=== PATIENT | male | born 1970 | race Caucasian/White ===

== ENCOUNTER 2018-01-28 18:01 | Emergency (ER) | payer OTHER | END 2018-01-28 19:39 | disposition left against medical advice (07) | LOC: ERS 18:01 | DX: Z53.21 Procedure and treatment not carried out due to patient leaving prior to being seen by health care provider (principal) ==

== ENCOUNTER 2019-08-10 21:11 | Emergency (ER) | payer OTHER ==
[2019-08-10] MEDS ORDERED: Morphine 4 MG/ML VIAL ONE (21:27)
[2019-08-10] MEDS ORDERED: Ketorolac Tromethamine 30 MG/ML VIAL ONE (21:29)
[2019-08-10] MEDS ORDERED: Ondansetron PF 4 MG/2 ML Vial ONE (21:29)
[2019-08-10 21:52] LABS: #Basophils 0.1 thou/uL (0.0-0.2); #Eosinphils 0.3 thou/uL (0.0-0.7); #Lymphocytes 3.3 thou/uL (1.20-3.40); #Monocytes 0.9 thou/uL (0.11-0.59); #Neutrophils 7.2 thou/uL (1.40-6.50); %Basophils 1.1 % (0.0-1.0); %Eosinophils 2.9 % (0.0-10.0); %Lymphocytes 27.7 % (21.0-51.0); %Monocytes 7.9 % (0.0-10.0); %Neutrophils 60.4 % (42.0-75.0); Hemoglobin 15.5 g/dL (14.0-18.0); Mean Corpuscular HGB CONC 33.5 g/dL (32.0-36.0); Mean Corpuscular Hemoglobin 30.1 pg (27.0-31.0); Mean Corpuscular Volume 89.9 fL (78.0-98.0); Mean Platelet Volume 7.7 fL (7.4-10.4); Platelet Count 250 thou/uL (130-400); RBC Distribution Width 12.2 % (11.5-14.5); Red Blood Cell (RBC) Count 5.16 mill/uL (4.70-6.10); White Blood Cell (WBC) Count 11.9 thou/uL (4.8-10.8)
--- NOTE | 2019-08-10 21:52 | CT ---
CT abdomen and pelvis noncontrast HISTORY: Right flank pain. COMPARISON: 08/22/2007. FINDINGS: There is minimal stranding around the right ureter. A 0.2 cm calculus is present within the distal right ureter. Minimal distention of the renal pelvis. Left renal collecting system, ureter, and urinary bladder are decompressed. There is a 0.3 cm calculu s within a nondilated calyx at the inferior pole of the left kidney. Lack of contrast limits evaluation for other abnormalities. The liver is diffusely hypodense. Calcifi cation within the arterial structures. Prominent degenerative changes lumbar spine. IMPRESSION: Very low-grade obstruction at a 2 mm distal right ureteral calculus. Nonobstructing 3 mm left renal calculus. Hepatosteatosis. Atherosclerosis.
[2019-08-10 22:08] LABS: ALT (SGPT) 66 U/L (8-55); AST (SGOT) 42 U/L (5-34); Albumin 4.1 g/dL (3.5-5.0); Alkaline Phosphatase 115 U/L (40-110); Anion Gap 11 mmol/L (10-20); BUN (Urea Nitrogen) 14 mg/dL (8.9-20.6); Bilirubin, Total 0.5 mg/dL (0.2-1.2); Calc. Creatinine Clearance 0 mL/min (70-130); Calcium 9.7 mg/dL (7.8-10.44); Carbon Dioxide 28 mmol/L (22-29); Chloride 104 mmol/L (98-107); Estimated GFR-MDRD 59; Globulin 3.1 g/dL (2.4-3.5); Glucose 104 mg/dL (70-105); Potassium 3.9 mmol/L (3.5-5.1); Protein, Total 7.2 g/dL (6.0-8.3); Sodium 139 mmol/L (136-145)
[2019-08-10 22:38] LABS: Bacteria/HPF None Seen HPF (None Seen); Bilirubin Negative (Negative); Blood, Urine 1+ (Negative); Clarity Clear (Clear); Glucose, Urine (Dipstick) Normal (Negative); Leukocyte Negative Leu/uL (Negative); Nitrite Negative (Negative); Protein, Urine (Dipstick) Negative (Neg-Trace); RBC/HPF 21-50 HPF (0-3); Squamous Epithelial None Seen HPF (0-3); Urobilinogen Normal mg/dL (Less than 2); WBC/HPF 0-3 HPF (0-3)
== END 2019-08-10 23:00 | disposition home or self-care (01) ==
LOC: ERS 21:11
DX: N20.2 Calculus of kidney with calculus of ureter (principal); I51.9 Heart disease, unspecified; F17.290 Nicotine dependence, other tobacco product, uncomplicated
CPT/HCPCS: 74176; 80053; 81003; 81015; 85025; 87086; J1885; J2270; J2405

== ENCOUNTER 2020-06-21 11:30 | Inpatient (IN) | payer OTHER ==
[2020-06-21] MEDS ORDERED: Aspirin Chewable 81 MG TAB ONE (11:55)
[2020-06-21] MEDS ORDERED: Nitroglycerin 2% Ointment 1 INCH/1 GM Packet ONE (11:55)
[2020-06-21 12:09] LABS: #Basophils 0.1 thou/uL (0.0-0.2); #Eosinphils 0.2 thou/uL (0.0-0.7); #Lymphocytes 2.5 thou/uL (1.20-3.40); #Monocytes 0.7 thou/uL (0.11-0.59); #Neutrophils 6.4 thou/uL (1.40-6.50); %Eosinophils 1.8 % (0.0-10.0); %Lymphocytes 25.1 % (21.0-51.0); %Monocytes 7.1 % (0.0-10.0); Hemoglobin 16.1 g/dL (14.0-18.0); Mean Corpuscular HGB CONC 32.2 g/dL (32.0-36.0); Mean Corpuscular Volume 93.1 fL (78.0-98.0); Platelet Count 254 thou/uL (130-400); RBC Distribution Width 11.9 % (11.5-14.5); Red Blood Cell (RBC) Count 5.36 mill/uL (4.70-6.10); White Blood Cell (WBC) Count 9.9 thou/uL (4.8-10.8)
--- NOTE | 2020-06-21 12:24 | RAD ---
RADIOGRAPH CHEST 1 VIEW: DATE: 06/21/2020 HISTORY: 49-year-old male with dyspnea FINDINGS: There are no airspace densities, pulmonary edema, pneumothorax, or cardiomegaly. The lateral costophr enic angles are sharp. IMPRESSION: No acute cardiopulmonary findings.
[2020-06-21 12:31] LABS: ALT (SGPT) 60 U/L (8-55); AST (SGOT) 34 U/L (5-34); Albumin 4.3 g/dL (3.5-5.0); Alkaline Phosphatase 110 U/L (40-110); Anion Gap 14 mmol/L (10-20); BUN (Urea Nitrogen) 15 mg/dL (8.9-20.6); Bilirubin, Total 0.5 mg/dL (0.2-1.2); Calc. Creatinine Clearance 0 mL/min (70-130); Calcium 9.1 mg/dL (7.8-10.44); Carbon Dioxide 23 mmol/L (22-29); Chloride 104 mmol/L (98-107); Estimated GFR-MDRD 62; Globulin 2.9 g/dL (2.4-3.5); Glucose 93 mg/dL (70-105); Lipase 27 U/L (8-78); Potassium 4.3 mmol/L (3.5-5.1); Protein, Total 7.2 g/dL (6.0-8.3); Sodium 137 mmol/L (136-145)
[2020-06-21] MEDS ORDERED: Acetaminophen 325 MG TAB PO PRN (13:16)
[2020-06-21] MEDS ORDERED: Enoxaparin Sodium 40 MG/0.4 ML SYRINGE ONE (14:47)
[2020-06-21] MEDS ORDERED: Enoxaparin Sodium 100 MG/ML SYRINGE ONE (14:47)
[2020-06-21 15:25] LABS: Troponin I Less than 0.010 ng/mL (< 0.028)
[2020-06-21 17:23] VITALS: BMI 40.8
--- NOTE | 2020-06-21 19:17 | HP ---
CHIEF COMPLAINT: Chest pain. HISTORY OF PRESENT ILLNESS: The patient is a 49-year-old male with past medical history of hypertension, hyperlipidemia and coronary artery disease status post stenting in 2012, who presented to the hospital with complaints of worsening shortness of breath and central chest pain with exertion. Symptoms were initially requiring a lot of effort to reproduce, but currently are present with minimal exertion. He denies palpitation, dizziness, syncope, nausea, or vomiting. The patient has not been compliant with his medications at home. REVIEW OF SYSTEMS: Negative except as noted in HPI. PAST MEDICAL HISTORY: As noted above. PAST SURGICAL HISTORY: Coronary angioplasty in 2013. SOCIAL HISTORY: The patient drinks socially. He uses marijuana and is a current smoker. ALLERGIES: THE PATIENT IS ALLERGIC TO IV CONTRAST MEDIA AND IODINE. PHYSICAL EXAMINATION: GENERAL: The patient is alert and oriented x3. HEENT: Head is normocephalic and atraumatic. Extraocular muscles are intact. NECK: Supple. CHEST: Auscultation is clear bilaterally. CARDIOVASCULAR: Examination revealed normal S1, S2. Regular rate and rhythm. No murmurs, rubs, or gallops. ABDOMEN: Distended, soft, nontender. NEUROLOGIC: Unremarkable. PERTINENT DATA: EKG revealed some lateral Q-waves, but no ST elevations or depressions. Initial troponin was unremarkable at 0.012. BNP was less than 10. Chest x-ray did not show any cardiopulmonary findings. ASSESSMENT: 1. Progressive angina pectoralis. 2. Coronary artery disease. 3. Hypertension. 4. Hyperlipidemia. PLAN: The patient will be admitted to telemetry. Start aspirin, atorvastatin, isosorbide dinitrate, metoprolol, and lisinopril. Trend troponins q.3 hours. Cardiology Service consulted. Keep the patient n.p.o. after midnight. Job ID: [id number]
[2020-06-21] MEDS ORDERED: Communication Order-Pharmacy FS SCH (20:15)
[2020-06-21] MEDS ORDERED: predniSONE 20 MG TAB PO SCH (20:15)
--- NOTE | 2020-06-21 20:32 | CON ---
DATE OF CONSULTATION: 06/21/2020 REASON FOR CONSULTATION: Chest pain. HISTORY OF PRESENT ILLNESS: Mr. Miller is a pleasant 49-year-old white gentleman who comes to the hospital for chest pain. He has noted that in the last week or so, he has gotten worsening dyspnea on exertion and shortness of breath as well as chest discomfort. He decided to come in as this was just getting worse. He has significant history of coronary artery disease, had 2 stents placed per his report by Dr. Bird at [facility] back in 2012. He states he was a heavy smoker at that time. However, he quit smoking since the stent, he is vaping since. He currently is pain free at rest. He denies any other issues. He states the last catheterization was about 4 years ago at [facility]. At that point, he was told that everything looked fine. PAST MEDICAL HISTORY: 1. Coronary artery disease as above. 2. Hypertension. 3. Hyperlipidemia. PAST SURGICAL HISTORY: Stenting in 2013 as above and repeat catheterization more recently. SOCIAL HISTORY: Social alcohol use. Marijuana use. Has not smoked cigarettes since his stents were placed according to his report. OUTPATIENT MEDICATIONS: None. ALLERGIES: IODINE. REVIEW OF SYSTEMS: A 12-point review of systems was done and was all negative unless stated in the History of Present Illness. PHYSICAL EXAMINATION: VITAL SIGNS: Temperature 97.8, pulse 73, respiratory rate 18, sat 95% on room air, and blood pressure 130/73. GENERAL: Awake, alert, and oriented x3. No distress. HEENT: Normocephalic, atraumatic. NECK: Supple. LUNGS: Clear. CARDIOVASCULAR: S1 and S2. No S3 or S4. No murmurs. ABDOMEN: Soft. Positive bowel sounds. EXTREMITIES: No edema. SKIN: Warm, dry. LABORATORY DATA: Laboratory work was reviewed. CBC unremarkable. Chemistries unremarkable as well. Troponin was negative x2. BNP is undetectable. EKG was reviewed, completely normal. Chest x-ray was unremarkable. ASSESSMENT: 1. Chest pain. 2. History of coronary artery disease, but no acute coronary syndrome. PLAN: 1. We spoke about risk stratification with a stress test versus heart catheterization at this point he is having ongoing shortness of breath with any exertion, I would probably offer heart catheterization instead. He would have to have a negative COVID test prior to doing this as this may be COVID-19 infection; however, we will offer to do this tomorrow around noon. 2. We have spoken at length with risks and benefits of the procedure, risks included but are not limited to stroke, AK, , bleeding, need for blood transfusion, limb loss, organ loss. The patient understands and verbalized understanding of this and agrees to proceed. Radial access, drug-eluting stents if needed after discussion of long-term use of dual antiplatelet therapy. Thank you for letting us to participate in the care of your patient. We will follow. Job ID: [id number]
[2020-06-21] MEDS: Metoprolol Tartrate 25 MG TAB PO SCH (20:40)
[2020-06-21] MEDS: Atorvastatin Calcium 40 MG TAB PO SCH (20:41)
[2020-06-21] MEDS: Isosorbide Dinitrate 20 MG TAB PO SCH (20:41)
[2020-06-21] MEDS ORDERED: diphenhydrAMINE 25 MG CAP PO SCH (22:00)
[2020-06-22] MEDS ORDERED: Sodium Chloride 0.9% 500 ML IV SCH ×3 (00:01→12:00)
[2020-06-22] MEDS ORDERED: diphenhydrAMINE 50 MG/ML VIAL IVP SCH (01:30)
[2020-06-22 04:38] LABS: #Basophils 0.1 thou/uL (0.0-0.2); #Lymphocytes 1.4 thou/uL (1.20-3.40); #Monocytes 0.2 thou/uL (0.11-0.59); #Neutrophils 7.6 thou/uL (1.40-6.50); %Basophils 0.7 % (0.0-1.0); %Eosinophils 0.3 % (0.0-10.0); %Lymphocytes 14.9 % (21.0-51.0); %Monocytes 1.6 % (0.0-10.0); %Neutrophils 82.5 % (42.0-75.0); Hemoglobin 15.9 g/dL (14.0-18.0); Mean Corpuscular HGB CONC 33.7 g/dL (32.0-36.0); Mean Corpuscular Hemoglobin 31.1 pg (27.0-31.0); Mean Corpuscular Volume 92.1 fL (78.0-98.0); Mean Platelet Volume 8.2 fL (7.4-10.4); Platelet Count 260 thou/uL (130-400); RBC Distribution Width 11.9 % (11.5-14.5); Red Blood Cell (RBC) Count 5.11 mill/uL (4.70-6.10); White Blood Cell (WBC) Count 9.2 thou/uL (4.8-10.8)
[2020-06-22 04:46] LABS: Hemoglobin A1c 5.3 % (4.0-6.0)
[2020-06-22 04:59] LABS: Anion Gap 12 mmol/L (10-20); BUN (Urea Nitrogen) 15 mg/dL (8.9-20.6); Calc. Creatinine Clearance 155 mL/min (70-130); Calcium 8.8 mg/dL (7.8-10.44); Carbon Dioxide 24 mmol/L (22-29); Cardiac Risk 5.7 (Less than 4.5); Chloride 105 mmol/L (98-107); Cholesterol 193 mg/dl (< 200 Desired); Estimated GFR-MDRD 68; Glucose 149 mg/dL (70-105); HDL Cholesterol 34 mg/dL (>60 Neg Risk); LDL Cholesterol, Calculated 132 mg/dL; Potassium 4.8 mmol/L (3.5-5.1); Sodium 136 mmol/L (136-145); Triglycerides 137 mg/dL (Less than 150)
[2020-06-22] MEDS: Aspirin 81 mg Enteric Coated Tablet PO SCH (05:33)
[2020-06-22] MEDS: Lisinopril 10 MG TAB PO SCH (05:33)
[2020-06-22] MEDS: Isosorbide Dinitrate 20 MG TAB PO SCH ×2 (05:33→21:27)
[2020-06-22] MEDS: Metoprolol Tartrate 25 MG TAB PO SCH ×2 (05:34→21:27)
[2020-06-22] MEDS ORDERED: predniSONE 50 MG TAB PO SCH (08:00)
[2020-06-22] MEDS ORDERED: Enoxaparin Sodium 40 MG/0.4 ML SYRINGE SC SCH (09:00)
[2020-06-22] MEDS ORDERED: Iopamidol 370 76% 100 ML VIAL ONE (09:30)
[2020-06-22] MEDS ORDERED: Verapamil 5 MG/2 ML VIAL ONE (10:45)
[2020-06-22] MEDS ORDERED: Heparin 10,000 UNITS/ 10 ML VIAL ONE (10:45)
[2020-06-22] MEDS ORDERED: Nitroglycerin 100MG/250ML BOT 250 ML ONE (10:45)
[2020-06-22] MEDS ORDERED: Lidocaine 1% (PF) 30 ML VIAL ONE (10:46)
[2020-06-22] MEDS ORDERED: Midazolam HCl 2 mg/2 ml Vial ONE (11:36)
[2020-06-22] MEDS ORDERED: Fentanyl 100 MCG/2 ML VIAL ONE (11:36)
[2020-06-22] MEDS ORDERED: Sodium Chloride 0.9% 200 ML IV PRN (11:58)
[2020-06-22] MEDS ORDERED: Nitroglycerin 0.4 MG TAB (25 Tab Bottle) SL PRN (11:58)
[2020-06-22] MEDS ORDERED: Acetaminophen/Codeine 30-300mg Tablet PO PRN (11:58)
[2020-06-22 12:04] LABS: SARS-CoV-2 MS2 Positive; SARS-CoV-2 N Gene Negative; SARS-CoV-2 S Gene Negative; SARS-CoV-2 by NAA Not Detected (NotDetected); SARS-CoV-2 orf1ab Negative
--- NOTE | 2020-06-22 14:11 | PDOC.HOSPP ---
- Subjective Encounter Date: 06/22/20 Subjective: The patient is chest pain-free at rest. - Objective Vital Signs & Weight: Vital Signs (12 hours) Temp Pulse Resp BP BP BP Pulse Ox 06/22/20 12:15 98.0 F 47 L 18 143/86 H 95 06/22/20 07:30 97.7 F 57 L 18 116/71 97 06/22/20 05:33 131/65 06/22/20 04:07 98.0 F 57 L 12 131/65 96 Weight Weight 309 lb 15.872 oz I&O: 06/21/20 06/22/20 06/23/20 06:59 06:59 06:59 Intake Total 1490 100 Output Total 100 Balance 1390 100 Result Diagrams: 06/22/20 04:20 06/22/20 04:20 Additional Labs: Accuchecks 06/21/20 20:27 POC Glucose 125 H Hospitalist ROS - Medication Medications: Active Medications Generic Name Dose Route Start Last Admin Trade Name Freq PRN Reason Stop Dose Admin Acetaminophen 650 mg 06/21/20 13:16 06/21/20 20:40 Acetaminophen 325 Mg Tab PO 650 mg Q4H PRN Administration Headache/Fever/Mild Pain (1-3) Aspirin 81 mg 06/22/20 09:00 06/22/20 05:33 Aspirin 81 Mg Enteric Coated Tablet PO 81 mg DAILY ERICKA Administration Atorvastatin Calcium 40 mg 06/21/20 21:00 06/21/20 20:41 Atorvastatin Calcium 40 Mg Tab PO 40 mg HS ERICKA Administration Diphenhydramine HCl 25 mg 06/22/20 01:30 06/22/20 11:13 Diphenhydramine 50 Mg/Ml Vial IVP 06/22/20 18:00 25 mg ONCALL-OR ERICKA Administration Sodium Chloride 500 mls @ 100 mls/hr 06/22/20 12:00 06/22/20 12:31 Normal Saline 0.9% IV 06/22/20 16:59 500 mls .Q5H ERICKA Administration Isosorbide Dinitrate 20 mg 06/21/20 21:00 06/22/20 05:33 Isosorbide Dinitrate 20 Mg Tab PO 20 mg BID ERICKA Administration Lisinopril 10 mg 06/22/20 09:00 06/22/20 05:33 Lisinopril 10 Mg Tab PO 10 mg DAILY ERICKA Administration Metoprolol Tartrate 12.5 mg 06/21/20 21:00 06/22/20 05:34 Metoprolol Tartrate 25 Mg Tab PO Not Given BID ERICKA Prednisone 50 mg 06/22/20 08:00 06/22/20 05:34 Prednisone 50 Mg Tab PO 06/22/20 23:59 50 mg QAM-WM ERICKA Administration - Exam General Appearance: awake alert ENT: normocephalic atraumatic Neck: supple, no JVD Heart: RRR Respiratory: normal chest expansion, no tachypnea Gastrointestinal: soft Neurological: cranial nerve grossly intact, no focal deficits Hosp A/P (1) Angina pectoris Code(s): I20.9 - ANGINA PECTORIS, UNSPECIFIED Status: Acute (2) Hypertension Code(s): I10 - ESSENTIAL (PRIMARY) HYPERTENSION Status: Acute (3) Hyperlipidemia Code(s): E78.5 - HYPERLIPIDEMIA, UNSPECIFIED Status: Acute (4) Coronary artery disease Code(s): I25.10 - ATHSCL HEART DISEASE OF [place] CORONARY ARTERY W/O ANG PCTRS Status: Acute - Plan The patient is COVID negative. Plan for cardiac catheterization by cardiology. Continue aspirin, atorvastatin, lisinopril, and metoprolol.
[2020-06-22] MEDS ORDERED: Diazepam 5 MG TAB PO PRN (15:07)
--- NOTE | 2020-06-22 20:10 | CON ---
DATE OF CONSULTATION: 06/22/2020 HISTORY OF PRESENT ILLNESS: Mr. Miller is a 49-year-old gentleman, who has a previous coronary artery history. He underwent stenting in [address] Bird at [facility] in his LAD. At that time, he was a heavy smoker. He stopped smoking since that time. He has been seen approximately 4 years ago and underwent cardiac catheterization at [facility] - details are unclear. He presented with chest pain through the Emergency Department. He has had progressive shortness of breath. He was evaluated and underwent coronary artery evaluation today with catheterization. This revealed severe three-vessel disease. His stents were patent. He has stenosis of his LAD distal to the stents. He has a proximal diagonal, proximal OM, and right coronary occlusion. Potential bypassable targets included LAD, diagonal, OM, PDA. I have been asked to see and discuss bypass. PAST MEDICAL HISTORY: 1. Coronary artery disease. 2. Hypertension. 3. Dyslipidemia. 4. Obesity. PAST SURGICAL HISTORY: None. CURRENT MEDICATIONS: None. ALLERGIES: IODINE. SOCIAL HISTORY: He works in a print shop. He does not use tobacco. He does smoke marijuana. He drinks alcohol socially. PHYSICAL EXAMINATION: GENERAL: This is a well-developed, well-nourished male, resting comfortably in bed. VITAL SIGNS: Height is 6 feet and 1 inch, weight is 309 pounds, and BSA is 2.69. Temperature is 98, pulse is 50 and regular, and blood pressure is 143/86. HEENT: Sclerae are nonicteric. Pupils are equal and round bilaterally. NECK: Supple. He has no carotid bruits. CHEST: Clear bilaterally. CARDIAC: Heart rhythm is regular without murmur. ABDOMEN: Soft and nontender without mass. EXTREMITIES: No edema. VASCULAR: He has palpable carotid, radial, femoral, and dorsalis pedis pulses bilaterally. VENOUS: There is no venous varicosities or venous stasis changes. Bar's test was performed on his left arm and he has a patent ulnar system with a harvestable radial artery. ASSESSMENT AND PLAN: A 49-year-old gentleman with three-vessel disease. Risks, benefits, and options of coronary artery bypass graft have been discussed with him. He is agreeable to proceed. We will plan for surgery on Thursday. Job ID: [id number]
[2020-06-22] MEDS: Atorvastatin Calcium 40 MG TAB PO SCH (21:27)
[2020-06-23] MEDS: Aspirin 81 mg Enteric Coated Tablet PO SCH (09:36)
[2020-06-23] MEDS: Isosorbide Dinitrate 20 MG TAB PO SCH ×2 (09:37→21:26)
[2020-06-23] MEDS: Metoprolol Tartrate 25 MG TAB PO SCH ×2 (09:37→21:26)
[2020-06-23] MEDS: Lisinopril 10 MG TAB PO SCH (09:37)
--- NOTE | 2020-06-23 13:53 | PDOC.HOSPP ---
- Subjective Subjective: Examined at bedside. Patient reportedly has some chest discomfort with exertion, but most time he did not have any symptoms if he is lying still. No other acute events overnight. - Objective Vital Signs & Weight: Vital Signs (12 hours) Temp Pulse Resp BP BP Pulse Ox 06/23/20 11:59 97.7 F 67 124/71 97 06/23/20 08:01 97.6 F 56 L 16 130/65 95 06/23/20 04:00 98.1 F 54 L 20 104/51 L 97 Weight Weight 309 lb 15.872 oz I&O: 06/22/20 06/23/20 06/24/20 06:59 06:59 06:59 Intake Total 1490 930 Output Total 100 Balance 1390 930 Result Diagrams: 06/22/20 04:20 06/22/20 04:20 Hospitalist ROS - Medication Medications: Active Medications Generic Name Dose Route Start Last Admin Trade Name Freq PRN Reason Stop Dose Admin Acetaminophen 650 mg 06/21/20 13:16 06/21/20 20:40 Acetaminophen 325 Mg Tab PO 06/25/20 06:00 650 mg Q4H PRN Administration Headache/Fever/Mild Pain (1-3) Aspirin 81 mg 06/22/20 09:00 06/23/20 09:36 Aspirin 81 Mg Enteric Coated Tablet PO 06/25/20 06:00 81 mg DAILY ERICKA Administration Atorvastatin Calcium 40 mg 06/21/20 21:00 06/22/20 21:27 Atorvastatin Calcium 40 Mg Tab PO 06/25/20 06:00 40 mg HS ERICKA Administration Isosorbide Dinitrate 20 mg 06/21/20 21:00 06/23/20 09:37 Isosorbide Dinitrate 20 Mg Tab PO 06/25/20 06:00 20 mg BID ERICKA Administration Lisinopril 10 mg 06/22/20 09:00 06/23/20 09:37 Lisinopril 10 Mg Tab PO 10 mg DAILY ERICKA Administration Metoprolol Tartrate 12.5 mg 06/21/20 21:00 06/23/20 09:37 Metoprolol Tartrate 25 Mg Tab PO 12.5 mg BID ERICKA Administration - Exam General Appearance: NAD Eye: PERRL, anicteric sclera ENT: normocephalic atraumatic Neck: supple, symmetric, JVD Heart: RRR Respiratory: CTAB, no wheezes Gastrointestinal: soft, non-tender Extremities: no cyanosis Skin: normal turgor Neurological: cranial nerve grossly intact Musculoskeletal: normal tone Psychiatric: normal affect, normal behavior, A&O x 3 Hosp A/P - Plan The patient is 49 years old gentleman who has significant past medical history of hypertension, dyslipidemia, and CAD with status post stent in 2012, presented to ED with complaint of chest pain. Multi-vessel CAD --s/p C --appreciate CV, plan for CABG on Thursday --cont ASA/Statin/BB/ACEi Chest pain - No chest pain at present --mgt as above HTN, BP stable --cont Lisinopril/Metoprolol Dyslipidemia --Cont statin
[2020-06-23] MEDS: Atorvastatin Calcium 40 MG TAB PO SCH (21:26)
[2020-06-24] MEDS ORDERED: ALPRAZolam 0.5 MG TAB PO PRN (08:48)
[2020-06-24] MEDS ORDERED: ALPRAZolam 0.5 MG TAB PO SCH (09:00)
[2020-06-24] MEDS: Metoprolol Tartrate 25 MG TAB PO SCH ×2 (09:24→20:06)
[2020-06-24] MEDS: Lisinopril 10 MG TAB PO SCH (09:24)
[2020-06-24] MEDS: Aspirin 81 mg Enteric Coated Tablet PO SCH (09:24)
[2020-06-24] MEDS: Isosorbide Dinitrate 20 MG TAB PO SCH ×2 (09:24→20:06)
--- NOTE | 2020-06-24 14:32 | PDOC.HOSPP ---
- Subjective Subjective: denies of CP anxious about surgery tomorrow no new event overnight - Objective Vital Signs & Weight: Vital Signs (12 hours) Temp Pulse Resp BP BP Pulse Ox 06/24/20 11:56 98.8 F 71 16 125/65 96 06/24/20 08:16 97.9 F 74 16 149/71 H 95 06/24/20 05:00 98.6 F 58 L 18 149/72 H 97 Weight Weight 292 lb 4 oz I&O: 06/23/20 06/24/20 06/25/20 06:59 06:59 06:59 Intake Total 930 1700 Output Total 1 Balance 930 1699 Result Diagrams: 06/22/20 04:20 06/22/20 04:20 Hospitalist ROS - Medication Medications: Active Medications Generic Name Dose Route Start Last Admin Trade Name Freq PRN Reason Stop Dose Admin Acetaminophen 650 mg 06/21/20 13:16 06/21/20 20:40 Acetaminophen 325 Mg Tab PO 06/25/20 06:00 650 mg Q4H PRN Administration Headache/Fever/Mild Pain (1-3) Aspirin 81 mg 06/22/20 09:00 06/24/20 09:24 Aspirin 81 Mg Enteric Coated Tablet PO 06/25/20 06:00 81 mg DAILY ERICKA Administration Atorvastatin Calcium 40 mg 06/21/20 21:00 06/23/20 21:26 Atorvastatin Calcium 40 Mg Tab PO 06/25/20 06:00 40 mg HS ERICKA Administration Isosorbide Dinitrate 20 mg 06/21/20 21:00 06/24/20 09:24 Isosorbide Dinitrate 20 Mg Tab PO 06/25/20 06:00 20 mg BID ERICKA Administration Lisinopril 10 mg 06/22/20 09:00 06/24/20 09:24 Lisinopril 10 Mg Tab PO 10 mg DAILY ERICKA Administration Metoprolol Tartrate 12.5 mg 06/21/20 21:00 06/24/20 09:24 Metoprolol Tartrate 25 Mg Tab PO 12.5 mg BID ERICKA Administration Hosp A/P - Plan - Exam General Appearance: NAD Eye: PERRL, anicteric sclera ENT: normocephalic atraumatic Neck: supple, symmetric, JVD Heart: RRR Respiratory: CTAB, no wheezes Gastrointestinal: soft, non-tender Extremities: no cyanosis Skin: normal turgor Neurological: cranial nerve grossly intact Musculoskeletal: normal tone Psychiatric: normal affect, normal behavior, A&O x 3 The patient is 49 years old gentleman who has significant past medical history of hypertension, dyslipidemia, and CAD with status post stent in 2012, presented to ED with complaint of chest pain. Multi-vessel CAD --s/p LHC --appreciate CV, plan for CABG on Thursday --cont ASA/Statin/BB/ACEi Chest pain - No chest pain at present --mgt as above HTN, BP stable --cont Lisinopril/Metoprolol Dyslipidemia --Cont statin Anxiety --add prn Xanax
[2020-06-24] MEDS ORDERED: Communication Order-Pharmacy FS PRN (15:07)
[2020-06-24] MEDS: Atorvastatin Calcium 40 MG TAB PO SCH (20:06)
[2020-06-25] MEDS: Metoprolol Tartrate 25 MG TAB PO SCH (05:21)
[2020-06-25] MEDS: Lisinopril 10 MG TAB PO SCH (05:21)
[2020-06-25] MEDS ORDERED: Dexamethasone 4 mg/ml Vial ONE (06:30)
[2020-06-25] MEDS ORDERED: Albumin 5% 500 ML ONE (06:30)
[2020-06-25] MEDS ORDERED: EPINEPHrine 1 MG/ML AMP ONE (06:30)
[2020-06-25] MEDS ORDERED: Bupivacaine PF 0.5% 30 ML VIAL ONE (06:30)
[2020-06-25] MEDS ORDERED: Midazolam HCl 2 mg/2 ml Vial ONE (06:35)
[2020-06-25] MEDS ORDERED: Midazolam HCl 5 mg/5 ml Vial ONE (06:35)
[2020-06-25] MEDS ORDERED: Fentanyl 100 MCG/2 ML VIAL ONE (06:35)
[2020-06-25] MEDS ORDERED: Dexmedetomidine 200 MCG/2 ML VIAL ONE (06:36)
[2020-06-25] MEDS ORDERED: Vecuronium 10 MG VIAL ONE ×3 (06:36→09:26)
[2020-06-25] MEDS ORDERED: Heparin 10,000 UNITS/1 ML VIAL 30,000 UNITS in Sodium Chloride 0.9% 1,000 ML FS SCH (06:45)
[2020-06-25] MEDS ORDERED: CEFAZOLIN 2 GM in Premix Bag 1 BAG IVPB SCH (07:30)
[2020-06-25] MEDS ORDERED: Insulin Regular 300 UNITS/3 ML VIAL ONE (08:36)
[2020-06-25] MEDS ORDERED: PHENYLEPHRINE-NS 100 MCG/ML 10 ML SYRINGE ONE (09:26)
[2020-06-25] MEDS ORDERED: Aminocaproic Acid 5 GM/20 ML VIAL ONE (09:26)
[2020-06-25] MEDS ORDERED: Sodium Bicarb 50 MEQ/50 ML Abboject 8.4% SYRINGE ONE (09:26)
[2020-06-25] MEDS ORDERED: Thrombin 5000 UNITS/5 ML VIAL ONE (09:26)
[2020-06-25] MEDS ORDERED: Magnesium Sulfate 1 GM/2 ML VIAL ONE (09:26)
[2020-06-25] MEDS ORDERED: Lidocaine 1% PF 5 ML VIAL ONE ×2 (09:26)
[2020-06-25] MEDS ORDERED: Potassium Chloride 60 MEQ/30 ML VIAL ONE (09:26)
[2020-06-25] MEDS ORDERED: Glycopyrrolate 0.2 MG/ML 5 ML SYRINGE ONE (09:26)
[2020-06-25] MEDS ORDERED: Protamine Sulfate 250 MG/25 ML VIAL ONE (09:26)
[2020-06-25] MEDS ORDERED: Ketorolac Tromethamine 30 MG/ML VIAL ONE (09:26)
[2020-06-25] MEDS ORDERED: Cardioplegic Soln 1,000 ML BAG ONE (09:26)
[2020-06-25] MEDS ORDERED: Calcium Chloride 1 GM/10 ML Abboject SYRINGE ONE (09:26)
[2020-06-25] MEDS ORDERED: Heparin 5,000 UNITS/ML VIAL ONE (09:26)
[2020-06-25] MEDS ORDERED: Ondansetron PF 4 MG/2 ML Vial ONE (09:26)
[2020-06-25] MEDS ORDERED: Nitroglycerin 50 MG/250 ML BOT ONE (09:26)
[2020-06-25] MEDS ORDERED: EPHEDRINE 25 MG/5 ML SYRINGE ONE (09:26)
[2020-06-25] MEDS ORDERED: Dexamethasone 20 MG/5 ML VIAL ONE (09:26)
[2020-06-25] MEDS ORDERED: Lidocaine 2% PF 100 mg/5 ml Syringe ONE (09:26)
[2020-06-25] MEDS ORDERED: Papaverine 60 MG/2 ML VIAL ONE (09:26)
[2020-06-25] MEDS ORDERED: Heparin 30,000 units/30 ml VIAL ONE (09:26)
[2020-06-25] MEDS ORDERED: Norepinephrine 8 MG/0.9% NS 250 ML IVPB PRN (11:43)
[2020-06-25] MEDS ORDERED: Fentanyl 100 MCG/2 ML VIAL SLOW IVP PRN (11:43)
[2020-06-25] MEDS ORDERED: Morphine 2 MG/ML VIAL SLOW IVP PRN (11:43)
[2020-06-25] MEDS ORDERED: Promethazine HCl 25 MG/ML VIAL IM PRN (11:43)
[2020-06-25] MEDS ORDERED: Nitroglycerin 50 MG/250 ML BOT 250 ML IVPB PRN (11:43)
[2020-06-25] MEDS ORDERED: hydrALAZINE 20 MG/ML VIAL SLOW IVP PRN (11:43)
[2020-06-25] MEDS ORDERED: HYDROcodone/Acetaminophen 5/325 mg Tablet PO PRN (11:43)
[2020-06-25] MEDS ORDERED: Hetastarch 6% 500 ML 500 ML IVPB PRN (11:43)
[2020-06-25] MEDS ORDERED: Post-Op Insulin Drip Protocol IVPB ONE (11:43)
[2020-06-25] MEDS ORDERED: Bisacodyl 5 MG TAB PO PRN (11:43)
[2020-06-25] MEDS ORDERED: Bisacodyl 10 MG SUPP PR PRN (11:43)
[2020-06-25] MEDS ORDERED: Acetaminophen 325 MG TAB PO PRN (11:43)
[2020-06-25] MEDS ORDERED: Potassium Chloride 20 MEQ/100 ML PREMIX BAG IVPB PRN (11:43)
[2020-06-25] MEDS ORDERED: Guaifenesin DM 100-10/5 ML UDCUP PO PRN (11:43)
[2020-06-25] MEDS ORDERED: Ondansetron PF 4 MG/2 ML Vial IVP PRN (11:43)
[2020-06-25] MEDS ORDERED: Mag-Al 1200 mg/1200 mg/30 ML UDCUP PO PRN (11:43)
[2020-06-25] MEDS ORDERED: D5 1/2 NS w/20 mEq KCL 1,000 ML IV SCH (11:45)
[2020-06-25 12:23] LABS: Hemoglobin 14.2 g/dL (14.0-18.0); Mean Corpuscular HGB CONC 32.5 g/dL (32.0-36.0); Mean Corpuscular Hemoglobin 30.3 pg (27.0-31.0); Mean Corpuscular Volume 93.3 fL (78.0-98.0); Mean Platelet Volume 8.3 fL (7.4-10.4); Platelet Count 145 thou/uL (130-400); RBC Distribution Width 11.9 % (11.5-14.5); Red Blood Cell (RBC) Count 4.68 mill/uL (4.70-6.10); White Blood Cell (WBC) Count 30.8 thou/uL (4.8-10.8)
[2020-06-25 12:27] LABS: INR-International Normal Ratio 1.3; PTT 28.1 sec (22.9-36.1)
[2020-06-25] MEDS: Ketorolac Tromethamine 30 MG/ML VIAL IVP SCH ×3 (12:27→23:25)
--- NOTE | 2020-06-25 12:29 | RAD ---
Exam: Chest one view HISTORY:Status post open heart surgery Comparison: 06/21/2020 FINDINGS: Cardiac silhouette:Magnification cardiac silhouette due to portable technique. There are sternotomy w ires Lines and tubes: Left-sided chest tube, right-sided subclavian vascular catheter. Aorta: Unremarkable Pulmonary vessels: Normal Costophrenic angles: Clear LUNGS: No masses or consolidation. Pneumothorax: None Osseous abnormalities: None IMPRESSION: Findings compatible with recent open heart surgery
[2020-06-25] MEDS ORDERED: Dextrose 50% Abboject 50 ML SYRINGE SLOW IVP PRN (12:30)
[2020-06-25] MEDS ORDERED: Dextrose 5% in Water 1,000 ML IV PRN (12:30)
[2020-06-25] MEDS ORDERED: Magnesium 2 GM/50 ML 2 GM in Premix Bag 1 BAG IVPB SCH (12:30)
[2020-06-25] MEDS ORDERED: HUMULIN R 100 UNITS in Sodium Chloride 0.9% 100 ML IVPB SCH (12:30)
[2020-06-25] MEDS ORDERED: Insulin Regular 300 UNITS/3 ML VIAL SC PRN (12:30)
[2020-06-25 12:41] LABS: Anion Gap 11 mmol/L (10-20); BUN (Urea Nitrogen) 15 mg/dL (8.9-20.6); Calc. Creatinine Clearance 165 mL/min (70-130); Calcium 8.8 mg/dL (7.8-10.44); Carbon Dioxide 22 mmol/L (22-29); Chloride 108 mmol/L (98-107); Estimated GFR-MDRD 79; Glucose 134 mg/dL (70-105); Potassium 4.3 mmol/L (3.5-5.1); Sodium 137 mmol/L (136-145)
[2020-06-25] MEDS: Fentanyl 100 MCG/2 ML VIAL SLOW IVP PRN ×4 (12:47→20:25)
[2020-06-25 12:59] LABS: Band 20 % (5-11); Lymphocytes 10 % (21-51); MDiff Complete? YES; Metamyelocyte 1 % (0-0); Monocytes 3 % (0-10); Neutrophil 64 % (42-75); Platelet Morphology Comment Appears Adequate; RBC Morphology Normal; Reactive Lymphocytes 1 % (0-10)
[2020-06-25] MEDS: CEFAZOLIN 2 GM in Premix Bag 1 BAG IVPB SCH ×2 (14:13→20:27)
--- NOTE | 2020-06-25 17:31 | OP ---
DATE OF PROCEDURE: 06/25/2020 PREOPERATIVE DIAGNOSES: Coronary artery disease/obesity/hypertension/dyslipidemia. POSTOPERATIVE DIAGNOSES: Coronary artery disease/obesity/hypertension/dyslipidemia. PROCEDURES PERFORMED: 1. Coronary artery bypass grafting x4. a. Left internal mammary artery to 1.5 mm mid LAD-good conduit target. b. Left radial artery to 1.25 mm diagonal-good conduit with diffusely diseased target. c. Reverse saphenous vein to 2.0 mm high diagonal-good conduit target. d. Reverse saphenous vein to 1.5 mm obtuse marginal-good conduit target. 2. Left radial artery harvest. CUPOLA PATCHER HELPER: Dr. Nura Matute. ANESTHESIA: General endotracheal, Dr. Sally Gomez. PUMP TIME: 58 minutes. CROSSCLAMP TIME: 34 minutes. CORE TEMPERATURE: 34 degrees Celsius. WIRE COATING MACHINE OPERATOR: Candy Dee. DRAINS: 24-[place] chest tubes x2. DRIPS: None. TRANSFUSIONS: None. DESCRIPTION OF PROCEDURE: After consent was obtained, the patient was brought to the operating room and placed in supine position on the operating table. Appropriate central line was placed and general endotracheal anesthesia was induced. The left arm Bar's test was repeated with showed good ulnar artery flow. Left radial artery was then harvested as a pedicle graft. Wounds were irrigated and closed in layers. The left thigh vein was harvested utilizing an endoscopic technique through a single knee incision. The vein was then prepared for use as conduit. The wound was irrigated and closed in layers. Median sternotomy was performed. Left internal mammary artery was harvested as a pedicle graft. The patient was systemically heparinized. Distal pedicle was divided and infused with papaverine. Thymic fat and pericardium were divided with electrocautery. Pericardial stay sutures were placed. Aortic and atrial cannulation were performed. After adequate heparinization, retrograde prime was performed. The patient was placed on cardiopulmonary bypass. Distal targets were marked. Aortic cross-clamp was applied and antegrade sanguineous cardioplegic arrest was obtained. 1 L of antegrade cold [place] cardioplegia was given. Topical cold solution was used. Reverse saphenous vein was anastomosed to the OM in end-to-side fashion with running 7-0 Prolene suture. Anastomosis was tested and was hemostatic. Reverse saphenous vein was anastomosed to the high diagonal in end-to-side fashion with running 7-0 Prolene suture. Anastomosis was tested and was hemostatic. The left radial artery was anastomosed to the diagonal in end-to-side fashion with running 7-0 Prolene suture. Anastomosis was tested and was hemostatic. Mammary artery was brought through a window in the pericardium and anastomosed to LAD in end-to-side fashion with running 7-0 Prolene suture. On release of mammary clamps, good hooding of the anastomosis and good distal flow. There was good retrograde flow through the radial artery which was then clamped. Pedicle was secured with interrupted 6-0 Prolene suture. Cross-clamp was removed and partial occluding clamp placed. Saphenous veins were anastomosed to individual punch sites in the aorta with running 6-0 Prolene suture. The radial artery was anastomosed to the galdamez of the highest proximal on the aorta. Partial occluding clamp was removed and graft was deaired. Anastomoses were inspected for hemostasis, which was good. The patient was warmed and weaned from cardiopulmonary bypass. After resumption of sinus rhythm, good hemodynamics, temperature greater than 36.5, bypass was discontinued. Transfusion was given. Protamine was administered. Decannulation was performed and pursestring suture secured. A 24-[place] chest tubes x2 were placed in mediastinum. Sternum was treated with vancomycin paste. After adequate hemostasis been obtained, sternum was closed with #7 wire. Sternum was treated with platelet rich plasma, wires twisted and buried. Wounds were irrigated, treated with platelet poor plasma. A presternal block was performed with Marcaine mixed with Decadron. The wounds were then treated with platelet poor plasma, and closed in multiple layers. Needle, sponge, and instrument counts were all reported as correct at the end of the procedure. The patient tolerated the procedure well and was awakened, extubated, and transferred to the intensive care in stable condition. Job ID: [id number]
--- NOTE | 2020-06-25 17:33 | PDOC.CPN ---
- Subjective Date: 06/25/20 Time: 17:31 Interval history: Doing well post op. Seen when just arriving to his ICU room. Still somnolent from anesthesia but extubated and stable. - Review of Systems ROS unobtainable: due to mental status - Objective Allergies/Adverse Reactions: Allergies Allergy/AdvReac Type Severity Reaction Status Date / Time Iodinated Contrast Media Allergy Verified 06/22/20 07:27 Visit Medications: Current Medications Acetaminophen (Acetaminophen 325 Mg Tab) 650 mg PO Q6H PRN PRN Reason: Headache/Fever Or Mild Pain Hydrocodone Bitart/Acetaminophen (Hydrocodone/Acetaminophen 5/325 Mg Tablet) 1 tab PO Q4H PRN PRN Reason: Moderate Pain (4-6) Hydrocodone Bitart/Acetaminophen (Hydrocodone/Acetaminophen 5/325 Mg Tablet) 2 tab PO Q4H PRN PRN Reason: Severe Pain (7-10) Al Hydroxide/Mg Hydroxide (Mag-Al 1200 Mg/1200 Mg/30 Ml Udcup) 30 ml PO Q4H PRN PRN Reason: Indigestion Albumin Human (Albumin 5% 12.5 Gm/250 Ml Bot) 12.5 gm IVPB Q6H PRN PRN Reason: To Maintain SBP> 90 mmHG Stop: 06/26/20 11:44 Albumin Human (Albumin 5% 12.5 Gm/250 Ml Bot) 25 gm IVPB Q6H PRN PRN Reason: To Maintain SBP > 90 mmHG Stop: 06/26/20 11:44 Last Admin: 06/25/20 12:10 Dose: 25 gm Documented by: Albuterol/Ipratropium (Ipratropium/Albuterol Sulfate 3 Ml Neb) 3 ml NEB Q6H PRN PRN Reason: SOB Aspirin (Aspirin 325 Mg Tab) 325 mg PO DAILY ERICKA Atorvastatin Calcium (Atorvastatin Calcium 40 Mg Tab) 40 mg PO HS ERICKA Bisacodyl (Bisacodyl 5 Mg Tab) 10 mg PO Q12H PRN PRN Reason: Constipation Bisacodyl (Bisacodyl 10 Mg Supp) 10 mg W[place] Q12H PRN PRN Reason: Constipation Dextrose/Water (Dextrose 50% Abboject 50 Ml Syringe) 25 gm SLOW IVP PRN PRN PRN Reason: PER HYPOGLYCEMIC PROTOCOL Famotidine (Famotidine/Pf 20 Mg/2ml Vial) 20 mg SLOW IVP Q12HR ERICKA Fentanyl (Fentanyl 100 Mcg/2 Ml Vial) 25 mcg SLOW IVP Q2H PRN PRN Reason: Moderate Pain (4-6) Stop: 06/27/20 11:36 Fentanyl (Fentanyl 100 Mcg/2 Ml Vial) 50 mcg SLOW IVP Q2H PRN PRN Reason: Severe Pain (7-10) Stop: 06/27/20 11:36 Last Admin: 06/25/20 15:57 Dose: 50 mcg Documented by: Glucagon (Glucagon 1 Mg/Ml Vial) 1 mg SC PRN PRN PRN Reason: PER HYPOGLYCEMIC PROTOCOL Guaifenesin/Dextromethorphan (Guaifenesin Dm 100-10/5 Ml Udcup) 15 ml PO Q4H PRN PRN Reason: Cough Hydralazine HCl (Hydralazine 20 Mg/Ml Vial) 10 mg SLOW IVP Q6H PRN PRN Reason: To Maintain SBP< 140mmHG Hetastarch/Sodium Chloride (Hespan) 500 mls @ 0 mls/hr IVPB PRN PRN PRN Reason: To Maintain SBP > 90mmHg Stop: 06/26/20 11:36 Last Admin: 06/25/20 16:05 Dose: 500 mls Documented by: Nitroglycerin/Dextrose (Nitroglycerin 50 Mg/250 Ml Bot) 250 mls @ 0 mls/hr IVPB PRN PRN; Protocol PRN Reason: To Maintain SBP< 140mmHG Potassium Chloride/Dextrose/Sod Cl (D5 1/2 Ns W/20 Meq Kcl) 1,000 mls @ 40 mls/hr IV .Q24H [facility] Last Admin: 06/25/20 12:24 Dose: 1,000 mls Documented by: Cefazolin Sodium/Dextrose 2 gm (/ Device) 50 mls @ 100 mls/hr IVPB Q8HR [facility] Stop: 06/26/20 06:29 Last Admin: 06/25/20 14:13 Dose: 50 mls Documented by: Magnesium Sulfate 2 gm/ Device 50 mls @ 50 mls/hr IVPB QAM [facility] Stop: 06/27/20 09:59 Norepinephrine Bitartrate (Levophed) 250 mls @ 0 mls/hr IVPB PRN PRN; Protocol PRN Reason: To maintain SBP > 90 mmHG Dextrose/Water (D5w) 1,000 mls @ 0 mls/hr IV INF PRN PRN Reason: PRN HYPOGLYCEMIC PROTOCOL Insulin Human Regular (Insulin Regular 300 Units/3 Ml Vial) 0 units SC Q4H PRN; Protocol PRN Reason: POST OP SLIDING SCALE Ketorolac Tromethamine (Ketorolac Tromethamine 30 Mg/Ml Vial) 30 mg IVP Q6HR ERICKA Stop: 06/28/20 12:01 Last Admin: 06/25/20 12:27 Dose: Not Given Documented by: Morphine Sulfate (Morphine 2 Mg/Ml Vial) 2 mg SLOW IVP Q15MIN PRN PRN Reason: Severe Pain (7-10) Ondansetron HCl (Ondansetron Pf 4 Mg/2 Ml Vial) 4 mg IVP Q6H PRN PRN Reason: Nausea/Vomiting Last Admin: 06/25/20 12:25 Dose: 4 mg Documented by: Potassium Chloride (Potassium Chloride 20 Meq/100 Ml Premix Bag) 20 meq IVPB PRN PRN PRN Reason: K level </= 4.0 Promethazine HCl (Promethazine Hcl 25 Mg/Ml Vial) 6.25 mg IM Q4H PRN PRN Reason: Nausea/Vomiting Sodium Chloride (Flush - Normal Saline 10 Ml Syringe) 10 ml IVF PRN PRN PRN Reason: Saline Flush Vital Signs & Weight: Vital Signs Temp Pulse Ox 06/25/20 16:00 97.6 F 06/25/20 13:00 97.5 F L 06/25/20 12:20 100 06/25/20 12:00 95.8 F L Admit Weight 302 lb 11.115 oz Weight 287 lb 8 oz - Physical Exam General: no apparent distress HEENT: mucus membranes moist Neck: supple neck Cardiac: regular rate and rhythm Lungs: normal breath sounds Neuro: no lateralizing findings Abdomen: active bowel sounds Extremities: 1+ LE edema Skin: clear Musculoskeletal: normal range of motion - Labs Result Diagrams: 06/25/20 12:08 06/25/20 12:08 Troponin/CKMB Troponin I Less than 0.010 ng/mL (< 0.028) 06/21/20 20:38 - Telemetry Sinus rhythms and dysrhythmias: sinus rhythm - Assessment/Plan Assessment/Plan: 1. Multivessel CAD. 2. S/P CABG x 4, HENLEY to LAD, SVG to D1, SVG to OM, Free radial to D2. 3. HTN 4. HLP PLAN: - ASA, statin for life. - BB and ACEI once BP allows - PT in next few days.
[2020-06-25 17:42] LABS: Hemoglobin 12.9 g/dL (14.0-18.0)
[2020-06-25 17:57] LABS: Potassium 4.6 mmol/L (3.5-5.1)
--- NOTE | 2020-06-25 18:16 | PDOC.HOSPP ---
- Subjective Subjective: s/p CABG x 4, somnolent from anesthesia. postop extubated prior to arrive in icu and tolerated it well on NC - Objective Vital Signs & Weight: Vital Signs (12 hours) Temp Pulse Ox 06/25/20 16:00 97.6 F 06/25/20 13:00 97.5 F L 06/25/20 12:20 100 06/25/20 12:00 95.8 F L Weight Admit Weight 302 lb 11.115 oz Weight 287 lb 8 oz Most Recent Monitor Data Heart Rate from ECG 78 NIBP 113/71 NIBP BP-Mean 85 Respiration from ECG 20 SpO2 100 I&O: 06/24/20 06/25/20 06/26/20 06:59 06:59 06:59 Intake Total 1700 1600 1447 Output Total 1 1295 Balance 1699 1600 152 Result Diagrams: 06/25/20 17:30 06/25/20 17:30 Additional Labs: Accuchecks 06/25/20 06/25/20 06/25/20 12:10 11:43 11:18 POC Glucose 129 H 103 H 158 H 06/25/20 06/25/20 06/25/20 10:39 10:16 09:40 POC Glucose 163 H 145 H 145 H 06/25/20 08:28 POC Glucose 146 H Hospitalist ROS - Medication Medications: Active Medications Generic Name Dose Route Start Last Admin Trade Name Freq PRN Reason Stop Dose Admin Albumin Human 25 gm 06/25/20 11:43 06/25/20 12:10 Albumin 5% 12.5 Gm/250 Ml Bot IVPB 06/26/20 11:44 25 gm Q6H PRN Administration To Maintain SBP > 90 mmHG Fentanyl 50 mcg 06/25/20 11:43 06/25/20 15:57 Fentanyl 100 Mcg/2 Ml Vial SLOW IVP 06/27/20 11:36 50 mcg Q2H PRN Administration Severe Pain (7-10) Hetastarch/Sodium Chloride 500 mls @ 0 mls/hr 06/25/20 11:43 06/25/20 16:05 Hespan IVPB 06/26/20 11:36 500 mls PRN PRN Administration To Maintain SBP > 90mmHg As Directed Potassium Chloride/Dextrose/Sod Cl 1,000 mls @ 40 mls/hr 06/25/20 11:45 06/25/20 12:24 D5 1/2 Ns W/20 Meq Kcl IV 1,000 mls .Q24H ERICKA Administration Cefazolin Sodium/Dextrose 2 gm 50 mls @ 100 mls/hr 06/25/20 14:00 06/25/20 14:13 / Device IVPB 06/26/20 06:29 50 mls Q8HR ERICKA Administration Ketorolac Tromethamine 30 mg 06/25/20 12:00 06/25/20 12:27 Ketorolac Tromethamine 30 Mg/Ml Vial IVP 06/28/20 12:01 Not Given Q6HR ERICKA Ondansetron HCl 4 mg 06/25/20 11:43 06/25/20 12:25 Ondansetron Pf 4 Mg/2 Ml Vial IVP 4 mg Q6H PRN Administration Nausea/Vomiting Hosp A/P - Plan - Exam General Appearance: NAD Eye: PERRL, anicteric sclera ENT: normocephalic atraumatic Neck: supple, symmetric, JVD Heart: RRR Respiratory: CTAB, no wheezes Gastrointestinal: soft, non-tender Extremities: no cyanosis Skin: normal turgor Neurological: cranial nerve grossly intact Musculoskeletal: normal tone Psychiatric: normal affect, normal behavior, A&O x 3 The patient is 49 years old gentleman who has significant past medical history of hypertension, dyslipidemia, and CAD with status post stent in 2012, presented to ED with complaint of chest pain. Multi-vessel CAD --s/p LHC --s/p CABG x 4 on 06/25 --cont ASA/Statin/BB/ACEi --cont routine post op management as per CV Chest pain - No chest pain at present --mgt as above HTN, BP stable --cont Lisinopril/Metoprolol Dyslipidemia --Cont statin Anxiety d/o --cont prn Xanax
[2020-06-25] MEDS: Atorvastatin Calcium 40 MG TAB PO SCH (20:27)
[2020-06-25] MEDS ORDERED: Famotidine/PF 20 mg/2ml Vial SLOW IVP SCH (21:00)
[2020-06-25] MEDS: HYDROcodone/Acetaminophen 5/325 mg Tablet PO PRN (21:45)
[2020-06-26] MEDS: HYDROcodone/Acetaminophen 5/325 mg Tablet PO PRN ×2 (01:34→05:28)
[2020-06-26 04:19] LABS: Anion Gap 12 mmol/L (10-20); BUN (Urea Nitrogen) 12 mg/dL (8.9-20.6); Calc. Creatinine Clearance 194 mL/min (70-130); Calcium 7.9 mg/dL (7.8-10.44); Carbon Dioxide 23 mmol/L (22-29); Chloride 105 mmol/L (98-107); Estimated GFR-MDRD Greater than 90; Glucose 132 mg/dL (70-105); Potassium 4.5 mmol/L (3.5-5.1); Sodium 135 mmol/L (136-145)
[2020-06-26] MEDS: CEFAZOLIN 2 GM in Premix Bag 1 BAG IVPB SCH (05:12)
[2020-06-26 05:13] LABS: #Lymphocytes 1.4 thou/uL (1.20-3.40); #Monocytes 1.3 thou/uL (0.11-0.59); #Neutrophils 14.6 thou/uL (1.40-6.50); %Basophils 0.1 % (0.0-1.0); %Eosinophils 0.1 % (0.0-10.0); %Lymphocytes 8.1 % (21.0-51.0); %Monocytes 7.2 % (0.0-10.0); %Neutrophils 84.5 % (42.0-75.0); Hemoglobin 12.5 g/dL (14.0-18.0); Mean Corpuscular HGB CONC 34.1 g/dL (32.0-36.0); Mean Corpuscular Hemoglobin 31.7 pg (27.0-31.0); Mean Platelet Volume 8.8 fL (7.4-10.4); Platelet Count 170 thou/uL (130-400); RBC Distribution Width 11.9 % (11.5-14.5); Red Blood Cell (RBC) Count 3.96 mill/uL (4.70-6.10); White Blood Cell (WBC) Count 17.3 thou/uL (4.8-10.8)
[2020-06-26] MEDS: Ketorolac Tromethamine 30 MG/ML VIAL IVP SCH ×4 (05:13→23:47)
--- NOTE | 2020-06-26 06:13 | PDOC.GSPN ---
Surgery Progress Note: Subj - Subjective Patient reports: no new complaints, pain well controlled Narrative: Mr. Miller is a 49 y/o male with a history of HTN, hyperlipidemia, and CAD who is POD1 from CABG x4. Patient is feeling well this morning with minimal pain and is currently sitting up in a chair. He was able to tolerate food and drink PO without nausea or vomiting. Denies flatus, bowel movement, nor fever. He was educated on how to use the incentive spirometer at bedside this AM. Chest drain: 410 Andrews: [id number] Surgery Progress Note: Obj - Vital signs Vital signs: Vital Signs - Most Recent Temp Pulse Resp BP Pulse Ox 98.3 F 63 18 155/87 H 96 06/26/20 03:00 06/25/20 05:12 06/25/20 05:12 06/25/20 05:12 06/25/20 20:00 - Physical Exam General: no distress ENT: normal mucosa Cardiovascular: regular rate and rhythm (Very soft heart sounds.), no murmur Respiratory: clear to auscultation, breath sounds present Integumentary: no rash Psychiatric: oriented to time, oriented to person, oriented to place Wound: dressing clean,dry,intact (No purulent or gross bloody drainage from midline incision.) Surgery Progress Note: Results - Labs Result Diagrams: 06/26/20 03:30 06/26/20 03:30 Lab results: Laboratory Results - last 24 hr 06/22/20 06/26/20 06/26/20 15:32 03:30 03:30 WBC 17.3 H RBC 3.96 L Hgb 12.5 L Hct 36.8 L MCV 93.0 MCH 31.7 H MCHC 34.1 RDW 11.9 Plt Count 170 MPV 8.8 Neutrophils % 84.5 H Lymphocytes % 8.1 L Monocytes % 7.2 Eosinophils % 0.1 Basophils % 0.1 Neutrophils # 14.6 H Lymphocytes # 1.4 Monocytes # 1.3 H Eosinophils # 0.0 Basophils # 0.0 Sodium 135 L Potassium 4.5 Chloride 105 Carbon Dioxide 23 Anion Gap 12 BUN 12 Creatinine 0.85 Estimated GFR (MDRD) Greater than 90 Glucose 132 H Calcium 7.9 Crossmatch See Detail Surgery Progress Note: A/P - Plan Plan: Mr. Miller is a 49 y/o male with a history of HTN, hyperlipidemia, and CAD who is POD1 from CABG x4 who is recovering well so far. Vitals are normal. Labs are normal. -Chest drain discontinued this AM -Discontinue andrews today -Encourage sitting in chair as tolerated -Monitor pain
[2020-06-26] MEDS ORDERED: ALPRAZolam 0.5 MG TAB PO PRN (06:14)
[2020-06-26] MEDS ORDERED: traMADol HCl 50 MG TAB PO PRN (06:15)
[2020-06-26] MEDS ORDERED: Bisacodyl 5 MG TAB PO PRN (06:23)
[2020-06-26] MEDS ORDERED: diphenhydrAMINE 25 MG CAP PO PRN (06:23)
[2020-06-26] MEDS ORDERED: Mineral Oil ENEMA PR PRN (06:23)
[2020-06-26] MEDS ORDERED: Bisacodyl 10 MG SUPP PR PRN (06:23)
[2020-06-26] MEDS ORDERED: Nitroglycerin 0.4 MG TAB (25 Tab Bottle) SL PRN (06:23)
[2020-06-26] MEDS ORDERED: Milk Of Magnesia 30 ML UDCUP PO PRN (06:23)
[2020-06-26] MEDS ORDERED: Guaifenesin DM 100-10/5 ML UDCUP PO PRN (06:23)
[2020-06-26] MEDS ORDERED: Zolpidem Tartrate 5 MG TAB PO PRN (06:23)
[2020-06-26] MEDS ORDERED: Mag-Al 1200 mg/1200 mg/30 ML UDCUP PO PRN (06:23)
[2020-06-26] MEDS: Magnesium 2 GM/50 ML 2 GM in Premix Bag 1 BAG IVPB SCH (07:16)
[2020-06-26] MEDS ORDERED: Aspirin 325 MG TAB PO SCH (09:00)
--- NOTE | 2020-06-26 09:17 | RAD ---
PORTABLE CHEST: HISTORY: Postop open heart surgery. COMPARISON: Prior day's study. FINDINGS: Heart size is enlarged. Right subclavian line is unchanged in position. Post sternotomy changes are present. IMPRESSION: Stable overall appearance of the chest. POS: [facility]
[2020-06-26] MEDS: traMADol HCl 50 MG TAB PO PRN ×2 (09:40→15:20)
[2020-06-26] MEDS: Furosemide 40 MG TAB PO SCH ×2 (09:43→20:57)
[2020-06-26] MEDS: Aspirin 81 mg Enteric Coated Tablet PO SCH (09:43)
[2020-06-26] MEDS: Metoprolol Tartrate 25 MG TAB PO SCH ×2 (09:43→20:57)
--- NOTE | 2020-06-26 16:17 | EKG ---
Test Reason : POST CABG Blood Pressure : / mmHG Vent. Rate : 068 BPM Atrial Rate : 068 BPM P-R Int : 188 ms QRS Dur : 088 ms QT Int : 418 ms P-R-T Axes : 060 078 055 degrees QTc Int : 444 ms Normal sinus rhythm Normal ECG Confirmed by ASHLEE DUBON ([id number]) on 06/26/2020 4:17:05 PM Referred By: Gina RICO Confirmed By:ASHLEE DUBON
--- NOTE | 2020-06-26 16:34 | PDOC.HOSPP ---
- Subjective Subjective: Seen examined at bedside. Patient status post CABG, POD 1, no acute events overnight. Patient is feeling well. He denies any pain. Chest ZOILA drain, Marie removed today. He is out of bed to chair. - Objective Vital Signs & Weight: Vital Signs (12 hours) Temp Pulse Pulse Pulse Resp BP BP 06/26/20 15:44 98.2 F 78 20 06/26/20 15:00 98.9 F 06/26/20 12:55 70 70 110/66 112/63 06/26/20 11:00 98.6 F 06/26/20 09:06 91 82 150/98 H 124/74 06/26/20 07:38 06/26/20 07:21 06/26/20 07:00 98.3 F BP Pulse Ox Pulse Ox Pulse Ox 06/26/20 15:44 129/64 95 06/26/20 15:00 06/26/20 12:55 99 94 L 06/26/20 11:00 06/26/20 09:06 99 98 06/26/20 07:38 94 L 06/26/20 07:21 97 06/26/20 07:00 Weight Admit Weight 302 lb 11.115 oz Weight 286 lb 6.087 oz Most Recent Monitor Data Heart Rate from ECG 73 NIBP 111/68 NIBP BP-Mean 82 Respiration from ECG 18 SpO2 99 I&O: 06/25/20 06/26/20 06/27/20 06:59 06:59 06:59 Intake Total 1600 2043 1335 Output Total 2970 680 Balance 1600 922 655 Result Diagrams: 06/26/20 03:30 06/26/20 03:30 Hospitalist ROS - Medication Medications: Active Medications Generic Name Dose Route Start Last Admin Trade Name Freq PRN Reason Stop Dose Admin Aspirin 81 mg 06/26/20 09:00 06/26/20 09:43 Aspirin 81 Mg Enteric Coated Tablet PO 81 mg DAILY ERICKA Administration Atorvastatin Calcium 40 mg 06/25/20 21:00 06/25/20 20:27 Atorvastatin Calcium 40 Mg Tab PO 40 mg HS ERICKA Administration Fentanyl 50 mcg 06/25/20 11:43 06/25/20 20:25 Fentanyl 100 Mcg/2 Ml Vial SLOW IVP 06/27/20 11:36 50 mcg Q2H PRN Administration Severe Pain (7-10) Furosemide 40 mg 06/26/20 09:00 06/26/20 09:43 Furosemide 40 Mg Tab PO 40 mg BID ERICKA Administration Magnesium Sulfate 2 gm/ Device 50 mls @ 50 mls/hr 06/26/20 09:00 06/26/20 07:16 IVPB 06/27/20 09:59 50 mls QAM ERICKA Administration Ketorolac Tromethamine 30 mg 06/25/20 12:00 06/26/20 12:30 Ketorolac Tromethamine 30 Mg/Ml Vial IVP 06/28/20 12:01 30 mg Q6HR ERICKA Administration Metoprolol Tartrate 12.5 mg 06/26/20 09:00 06/26/20 09:43 Metoprolol Tartrate 25 Mg Tab PO 12.5 mg BID ERICKA Administration Ondansetron HCl 4 mg 06/25/20 11:43 06/25/20 12:25 Ondansetron Pf 4 Mg/2 Ml Vial IVP 4 mg Q6H PRN Administration Nausea/Vomiting Pantoprazole Sodium 40 mg 06/26/20 09:00 06/26/20 07:15 Pantoprazole 40 Mg Tab PO 40 mg DAILY ERICKA Administration Sodium Chloride 10 ml 06/25/20 11:43 06/26/20 09:43 Flush - Normal Saline 10 Ml Syringe IVF 10 ml PRN PRN Administration Saline Flush Tramadol HCl 100 mg 06/26/20 06:15 06/26/20 15:20 Tramadol Hcl 50 Mg Tab PO 100 mg Q6H PRN Administration Severe Pain (7-10) Hosp A/P - Plan - Exam General Appearance: NAD Eye: PERRL, anicteric sclera ENT: normocephalic atraumatic Neck: supple, symmetric, JVD Heart: RRR Respiratory: CTAB, no wheezes Gastrointestinal: soft, non-tender Extremities: no cyanosis Skin: normal turgor Neurological: cranial nerve grossly intact Musculoskeletal: normal tone Psychiatric: normal affect, normal behavior, A&O x 3 The patient is 49 years old gentleman who has significant past medical history of hypertension, dyslipidemia, and CAD with status post stent in 2012, presented to ED with complaint of chest pain. Multi-vessel CAD --s/p LHC --s/p CABG x 4 on 06/25 --cont ASA/Statin/BB/ACEi --cont routine post op management as per CV --Encourage I-S, increase ambulation --Transfer to telemetry when okay with CV Chest pain - No chest pain at present --mgt as above HTN, BP stable --cont Lisinopril/Metoprolol Dyslipidemia --Cont statin Anxiety d/o --cont prn Xanax
--- NOTE | 2020-06-26 17:09 | PDOC.CPN ---
- Subjective Date: 06/26/20 Time: 17:08 Interval history: Doing a lot better today. His only complaint is leg spasms. He is passing gas. - Review of Systems General: denies: fever/chills, weight/appetite/sleep changes, night sweats, fatigue Respiratory: denies: cough, congestion, shortness of breath, exercise intolerance Cardiovascular: denies: chest pain, palpitation, edema, paroxysmal nocturnal dyspnea, orthopnea Gastrointestinal: denies: nausea, vomiting, diarrhea, constipation, abd pain, GI bleeding Musculoskeletal: denies: pain, tenderness, stiffness, swelling, arthritis/arthralgias Neurological: denies: numbness, syncope, seizure, weakness - Objective Allergies/Adverse Reactions: Allergies Allergy/AdvReac Type Severity Reaction Status Date / Time Iodinated Contrast Media Allergy Verified 06/22/20 07:27 Visit Medications: Current Medications Acetaminophen (Acetaminophen 325 Mg Tab) 650 mg PO Q6H PRN PRN Reason: Headache/Fever Or Mild Pain Al Hydroxide/Mg Hydroxide (Mag-Al 1200 Mg/1200 Mg/30 Ml Udcup) 30 ml PO Q4H PRN PRN Reason: Indigestion Al Hydroxide/Mg Hydroxide (Mag-Al 1200 Mg/1200 Mg/30 Ml Udcup) 30 ml PO Q4H PRN PRN Reason: Indigestion Albuterol/Ipratropium (Ipratropium/Albuterol Sulfate 3 Ml Neb) 3 ml NEB Q6H PRN PRN Reason: SOB Alprazolam (Alprazolam 0.5 Mg Tab) 0.5 mg PO TIDPRN PRN PRN Reason: Anxiety Aspirin (Aspirin 81 Mg Enteric Coated Tablet) 81 mg PO DAILY [facility] Last Admin: 06/26/20 09:43 Dose: 81 mg Documented by: Atorvastatin Calcium (Atorvastatin Calcium 40 Mg Tab) 40 mg PO HS [facility] Last Admin: 06/25/20 20:27 Dose: 40 mg Documented by: Bisacodyl (Bisacodyl 5 Mg Tab) 10 mg PO Q12H PRN PRN Reason: Constipation Bisacodyl (Bisacodyl 10 Mg Supp) 10 mg MD Q12H PRN PRN Reason: Constipation Bisacodyl (Bisacodyl 5 Mg Tab) 10 mg PO Q12H PRN PRN Reason: Constipation Bisacodyl (Bisacodyl 10 Mg Supp) 10 mg MD Q12H PRN PRN Reason: Constipation Diphenhydramine HCl (Diphenhydramine 25 Mg Cap) 25 mg PO Q6H PRN PRN Reason: Itching & Insomnia or Mushtaq Homer Fentanyl (Fentanyl 100 Mcg/2 Ml Vial) 25 mcg SLOW IVP Q2H PRN PRN Reason: Moderate Pain (4-6) Stop: 06/27/20 11:36 Fentanyl (Fentanyl 100 Mcg/2 Ml Vial) 50 mcg SLOW IVP Q2H PRN PRN Reason: Severe Pain (7-10) Stop: 06/27/20 11:36 Last Admin: 06/25/20 20:25 Dose: 50 mcg Documented by: Furosemide (Furosemide 40 Mg Tab) 40 mg PO BID [facility] Last Admin: 06/26/20 09:43 Dose: 40 mg Documented by: Guaifenesin/Dextromethorphan (Guaifenesin Dm 100-10/5 Ml Udcup) 15 ml PO Q4H PRN PRN Reason: Cough Guaifenesin/Dextromethorphan (Guaifenesin Dm 100-10/5 Ml Udcup) 15 ml PO Q4H PRN PRN Reason: Cough Hydralazine HCl (Hydralazine 20 Mg/Ml Vial) 10 mg SLOW IVP Q6H PRN PRN Reason: To Maintain SBP< 140mmHG Magnesium Sulfate 2 gm/ Device 50 mls @ 50 mls/hr IVPB QAM [facility] Stop: 06/27/20 09:59 Last Admin: 06/26/20 07:16 Dose: 50 mls Documented by: Ketorolac Tromethamine (Ketorolac Tromethamine 30 Mg/Ml Vial) 30 mg IVP Q6HR [facility] Stop: 06/28/20 12:01 Last Admin: 06/26/20 12:30 Dose: 30 mg Documented by: Magnesium Hydroxide (Milk Of Magnesia 30 Ml Udcup) 30 ml PO Q12H PRN PRN Reason: Constipation Metoprolol Tartrate (Metoprolol Tartrate 25 Mg Tab) 12.5 mg PO BID [facility] Last Admin: 06/26/20 09:43 Dose: 12.5 mg Documented by: Mineral Oil (Mineral Oil Enema) 133 ml MD DAILYPRN PRN PRN Reason: Constipation Nitroglycerin (Nitroglycerin 0.4 Mg Tab (25 Tab Bottle)) 0.4 mg SL Q5MIN PRN PRN Reason: Chest Pain Ondansetron HCl (Ondansetron Pf 4 Mg/2 Ml Vial) 4 mg IVP Q6H PRN PRN Reason: Nausea/Vomiting Last Admin: 06/25/20 12:25 Dose: 4 mg Documented by: Pantoprazole Sodium (Pantoprazole 40 Mg Tab) 40 mg PO DAILY ERICKA Last Admin: 06/26/20 07:15 Dose: 40 mg Documented by: Potassium Chloride (Potassium Chloride 10 Meq Tab) 10 meq PO QAM-WM ERICKA Sodium Chloride (Flush - Normal Saline 10 Ml Syringe) 10 ml IVF PRN PRN PRN Reason: Saline Flush Last Admin: 06/26/20 09:43 Dose: 10 ml Documented by: Tramadol HCl (Tramadol Hcl 50 Mg Tab) 50 mg PO Q6H PRN PRN Reason: Moderate Pain (4-6) Tramadol HCl (Tramadol Hcl 50 Mg Tab) 100 mg PO Q6H PRN PRN Reason: Severe Pain (7-10) Last Admin: 06/26/20 15:20 Dose: 100 mg Documented by: Zolpidem Tartrate (Zolpidem Tartrate 5 Mg Tab) 5 mg PO HSPRN PRN PRN Reason: Insomnia Vital Signs & Weight: Vital Signs Temp Pulse Pulse Pulse Resp BP BP 06/26/20 15:44 98.2 F 78 20 06/26/20 15:00 98.9 F 06/26/20 12:55 70 70 110/66 112/63 06/26/20 11:00 98.6 F 06/26/20 09:06 91 82 150/98 H 124/74 06/26/20 07:38 06/26/20 07:21 06/26/20 07:00 98.3 F BP Pulse Ox Pulse Ox Pulse Ox 06/26/20 15:44 129/64 95 06/26/20 15:00 06/26/20 12:55 99 94 L 06/26/20 11:00 06/26/20 09:06 99 98 06/26/20 07:38 94 L 06/26/20 07:21 97 06/26/20 07:00 Admit Weight 302 lb 11.115 oz Weight 286 lb 6.087 oz - Physical Exam General: alert & oriented x3 HEENT: mucus membranes moist Neck: supple neck Cardiac: regular rate and rhythm Lungs: normal breath sounds Neuro: grossly intact Abdomen: active bowel sounds Extremities: 1+ LE edema Skin: clear Musculoskeletal: no pain - Labs Result Diagrams: 06/26/20 03:30 06/26/20 03:30 Troponin/CKMB Troponin I Less than 0.010 ng/mL (< 0.028) 06/21/20 20:38 - Telemetry Sinus rhythms and dysrhythmias: sinus rhythm - Assessment/Plan Assessment/Plan: 1. Multivessel CAD. 2. S/P CABG x 4, HENLEY to LAD, SVG to D1, SVG to OM, Free radial to D2. 3. HTN 4. HLP PLAN: - ASA, statin for life. - Continue low dose BB. ACEI in next few days. - Increase PT as tolerated.
[2020-06-26] MEDS: Atorvastatin Calcium 40 MG TAB PO SCH (20:57)
[2020-06-27] MEDS: Ketorolac Tromethamine 30 MG/ML VIAL IVP SCH ×3 (05:09→18:01)
[2020-06-27] MEDS: Potassium Chloride 10 MEQ TAB PO SCH (09:09)
[2020-06-27] MEDS: Aspirin 81 mg Enteric Coated Tablet PO SCH (09:09)
[2020-06-27] MEDS: Clopidogrel Bisulfate 75 MG TAB PO SCH (09:09)
[2020-06-27] MEDS: traMADol HCl 50 MG TAB PO PRN (09:09)
[2020-06-27] MEDS: Furosemide 40 MG TAB PO SCH ×2 (09:10→21:10)
[2020-06-27] MEDS: Metoprolol Tartrate 25 MG TAB PO SCH ×2 (09:10→21:09)
[2020-06-27] MEDS: Magnesium 2 GM/50 ML 2 GM in Premix Bag 1 BAG IVPB SCH (09:11)
--- NOTE | 2020-06-27 13:02 | PDOC.CPN ---
- Subjective Date: 06/27/20 Time: 13:00 Interval history: He is doign much better. Passing gas but no BM, not bloated. Started to have weeping from left radial harvest site. - Review of Systems General: denies: fever/chills, weight/appetite/sleep changes, night sweats, fatigue Respiratory: denies: cough, congestion, shortness of breath, exercise intolerance Cardiovascular: denies: chest pain, palpitation, edema, paroxysmal nocturnal dyspnea, orthopnea Gastrointestinal: denies: nausea, vomiting, diarrhea, constipation, abd pain, GI bleeding Musculoskeletal: denies: pain, tenderness, stiffness, swelling, arthritis/arthralgias Neurological: denies: numbness, syncope, seizure, weakness - Objective Allergies/Adverse Reactions: Allergies Allergy/AdvReac Type Severity Reaction Status Date / Time Iodinated Contrast Media Allergy Verified 06/22/20 07:27 Visit Medications: Current Medications Acetaminophen (Acetaminophen 325 Mg Tab) 650 mg PO Q6H PRN PRN Reason: Headache/Fever Or Mild Pain Last Admin: 06/27/20 11:47 Dose: 650 mg Documented by: Al Hydroxide/Mg Hydroxide (Mag-Al 1200 Mg/1200 Mg/30 Ml Udcup) 30 ml PO Q4H PRN PRN Reason: Indigestion Albuterol/Ipratropium (Ipratropium/Albuterol Sulfate 3 Ml Neb) 3 ml NEB Q6H PRN PRN Reason: SOB Alprazolam (Alprazolam 0.5 Mg Tab) 0.5 mg PO TIDPRN PRN PRN Reason: Anxiety Aspirin (Aspirin 81 Mg Enteric Coated Tablet) 81 mg PO DAILY [facility] Last Admin: 06/27/20 09:09 Dose: 81 mg Documented by: Atorvastatin Calcium (Atorvastatin Calcium 40 Mg Tab) 40 mg PO HS [facility] Last Admin: 06/26/20 20:57 Dose: 40 mg Documented by: Bisacodyl (Bisacodyl 5 Mg Tab) 10 mg PO Q12H PRN PRN Reason: Constipation Bisacodyl (Bisacodyl 10 Mg Supp) 10 mg W[place] Q12H PRN PRN Reason: Constipation Clopidogrel Bisulfate (Clopidogrel Bisulfate 75 Mg Tab) 75 mg PO DAILY [facility] Last Admin: 06/27/20 09:09 Dose: 75 mg Documented by: Diphenhydramine HCl (Diphenhydramine 25 Mg Cap) 25 mg PO Q6H PRN PRN Reason: Itching & Insomnia or Mushtaq Homer Furosemide (Furosemide 40 Mg Tab) 40 mg PO BID [facility] Last Admin: 06/27/20 09:10 Dose: 40 mg Documented by: Guaifenesin/Dextromethorphan (Guaifenesin Dm 100-10/5 Ml Udcup) 15 ml PO Q4H PRN PRN Reason: Cough Hydralazine HCl (Hydralazine 20 Mg/Ml Vial) 10 mg SLOW IVP Q6H PRN PRN Reason: To Maintain SBP< 140mmHG Ketorolac Tromethamine (Ketorolac Tromethamine 30 Mg/Ml Vial) 30 mg IVP Q6HR [facility] Stop: 06/28/20 12:01 Last Admin: 06/27/20 11:47 Dose: 30 mg Documented by: Magnesium Hydroxide (Milk Of Magnesia 30 Ml Udcup) 30 ml PO Q12H PRN PRN Reason: Constipation Metoprolol Tartrate (Metoprolol Tartrate 25 Mg Tab) 12.5 mg PO BID [facility] Last Admin: 06/27/20 09:10 Dose: 12.5 mg Documented by: Mineral Oil (Mineral Oil Enema) 133 ml [place] DAILYPRN PRN PRN Reason: Constipation Nitroglycerin (Nitroglycerin 0.4 Mg Tab (25 Tab Bottle)) 0.4 mg SL Q5MIN PRN PRN Reason: Chest Pain Ondansetron HCl (Ondansetron Pf 4 Mg/2 Ml Vial) 4 mg IVP Q6H PRN PRN Reason: Nausea/Vomiting Last Admin: 06/25/20 12:25 Dose: 4 mg Documented by: Pantoprazole Sodium (Pantoprazole 40 Mg Tab) 40 mg PO DAILY [facility] Last Admin: 06/27/20 09:10 Dose: 40 mg Documented by: Potassium Chloride (Potassium Chloride 10 Meq Tab) 10 meq PO QAM[facility] Last Admin: 06/27/20 09:09 Dose: 10 meq Documented by: Sodium Chloride (Flush - Normal Saline 10 Ml Syringe) 10 ml IVF PRN PRN PRN Reason: Saline Flush Last Admin: 06/26/20 09:43 Dose: 10 ml Documented by: Tramadol HCl (Tramadol Hcl 50 Mg Tab) 50 mg PO Q6H PRN PRN Reason: Moderate Pain (4-6) Tramadol HCl (Tramadol Hcl 50 Mg Tab) 100 mg PO Q6H PRN PRN Reason: Severe Pain (7-10) Last Admin: 06/27/20 09:09 Dose: 100 mg Documented by: Zolpidem Tartrate (Zolpidem Tartrate 5 Mg Tab) 5 mg PO HSPRN PRN PRN Reason: Insomnia Vital Signs & Weight: Vital Signs Temp Pulse Pulse Pulse Resp BP BP 06/27/20 11:43 98.2 F 67 16 06/27/20 09:08 79 82 133/74 132/60 06/27/20 07:45 99.2 F 81 18 06/27/20 03:19 98.9 F 77 18 BP BP Pulse Ox Pulse Ox Pulse Ox 06/27/20 11:43 118/61 93 L 06/27/20 09:08 93 L 97 06/27/20 07:45 135/67 06/27/20 03:19 118/57 L 97 Admit Weight 302 lb 11.115 oz Weight 299 lb - Physical Exam General: alert & oriented x3 HEENT: mucus membranes moist Neck: supple neck Cardiac: regular rate and rhythm Lungs: normal breath sounds Neuro: grossly intact Abdomen: active bowel sounds Extremities: 1+ LE edema Skin: clear Musculoskeletal: no pain - Labs Result Diagrams: 06/26/20 03:30 06/26/20 03:30 Troponin/CKMB Troponin I Less than 0.010 ng/mL (< 0.028) 06/21/20 20:38 - Telemetry Sinus rhythms and dysrhythmias: sinus rhythm - Assessment/Plan Assessment/Plan: 1. Multivessel CAD. 2. S/P CABG x 4, HENLEY to LAD, SVG to D1, SVG to OM, Free radial to D2. 3. HTN 4. HLP 5. Left arm hematoma. PLAN: - ASA, statin for life. - Continue low dose BB. ACEI in next few days. - Increase PT as tolerated. - Good pulses and capillary refill on left hand. Monitor.
[2020-06-27] MEDS ORDERED: HYDROcodone/Acetaminophen 5/325 mg Tablet PO PRN (19:29)
--- NOTE | 2020-06-27 19:31 | PDOC.HOSPP ---
- Subjective Subjective: Patient was seen examined at bedside. He complains of pain at the surgical site. He is working with physical therapy. - Objective Vital Signs & Weight: Vital Signs (12 hours) Temp Pulse Pulse Pulse Resp BP BP 06/27/20 15:45 98.5 F 74 16 06/27/20 13:21 75 66 146/70 H 147/70 H 06/27/20 11:43 98.2 F 67 16 06/27/20 09:08 79 82 133/74 132/60 06/27/20 07:45 99.2 F 81 18 BP BP BP Pulse Ox Pulse Ox Pulse Ox 06/27/20 15:45 120/65 97 06/27/20 13:21 94 L 98 06/27/20 11:43 118/61 93 L 06/27/20 09:08 93 L 97 06/27/20 07:45 135/67 Weight Admit Weight 302 lb 11.115 oz Weight 299 lb Most Recent Monitor Data Heart Rate from ECG 73 NIBP 111/68 NIBP BP-Mean 82 Respiration from ECG 18 SpO2 99 I&O: 06/26/20 06/27/20 06/28/20 06:59 06:59 06:59 Intake Total 2043 1755 720 Output Total 2970 1430 575 Balance -927 325 145 Result Diagrams: 06/26/20 03:30 06/26/20 03:30 Hospitalist ROS - Medication Medications: Active Medications Generic Name Dose Route Start Last Admin Trade Name Freq PRN Reason Stop Dose Admin Acetaminophen 650 mg 06/25/20 11:43 06/27/20 11:47 Acetaminophen 325 Mg Tab PO 650 mg Q6H PRN Administration Headache/Fever Or Mild Pain Aspirin 81 mg 06/26/20 09:00 06/27/20 09:09 Aspirin 81 Mg Enteric Coated Tablet PO 81 mg DAILY ERICKA Administration Atorvastatin Calcium 40 mg 06/25/20 21:00 06/26/20 20:57 Atorvastatin Calcium 40 Mg Tab PO 40 mg HS ERICKA Administration Clopidogrel Bisulfate 75 mg 06/27/20 09:00 06/27/20 09:09 Clopidogrel Bisulfate 75 Mg Tab PO 75 mg DAILY ERICKA Administration Furosemide 40 mg 06/26/20 09:00 06/27/20 09:10 Furosemide 40 Mg Tab PO 40 mg BID ERICKA Administration Ketorolac Tromethamine 30 mg 06/25/20 12:00 06/27/20 18:01 Ketorolac Tromethamine 30 Mg/Ml Vial IVP 06/28/20 12:01 30 mg Q6HR ERICKA Administration Metoprolol Tartrate 12.5 mg 06/26/20 09:00 06/27/20 09:10 Metoprolol Tartrate 25 Mg Tab PO 12.5 mg BID ERICKA Administration Ondansetron HCl 4 mg 06/25/20 11:43 06/25/20 12:25 Ondansetron Pf 4 Mg/2 Ml Vial IVP 4 mg Q6H PRN Administration Nausea/Vomiting Pantoprazole Sodium 40 mg 06/26/20 09:00 06/27/20 09:10 Pantoprazole 40 Mg Tab PO 40 mg DAILY ERICKA Administration Potassium Chloride 10 meq 06/27/20 08:00 06/27/20 09:09 Potassium Chloride 10 Meq Tab PO 10 meq QAM-WM ERICKA Administration Sodium Chloride 10 ml 06/25/20 11:43 06/26/20 09:43 Flush - Normal Saline 10 Ml Syringe IVF 10 ml PRN PRN Administration Saline Flush Tramadol HCl 100 mg 06/26/20 06:15 06/27/20 09:09 Tramadol Hcl 50 Mg Tab PO 100 mg Q6H PRN Administration Severe Pain (7-10) Hosp A/P - Plan - Exam General Appearance: NAD Eye: PERRL, anicteric sclera ENT: normocephalic atraumatic Neck: supple, symmetric, JVD Heart: RRR Respiratory: CTAB, no wheezes Gastrointestinal: soft, non-tender Extremities: no cyanosis Skin: normal turgor Neurological: cranial nerve grossly intact Musculoskeletal: normal tone Psychiatric: normal affect, normal behavior, A&O x 3 The patient is 49 years old gentleman who has significant past medical history of hypertension, dyslipidemia, and CAD with status post stent in 2012, presented to ED with complaint of chest pain. Multi-vessel CAD --s/p LHC --s/p CABG x 4 on 06/25 --cont ASA/Statin/BB/ACEi --cont routine post op management as per CV --Encourage I-S, increase ambulation --add [employer] prn for pain Chest pain - No chest pain at present --mgt as above HTN, BP stable --cont Lisinopril/Metoprolol Dyslipidemia --Cont statin Anxiety d/o --cont prn Xanax
[2020-06-27] MEDS: Atorvastatin Calcium 40 MG TAB PO SCH (21:09)
[2020-06-28] MEDS: Ketorolac Tromethamine 30 MG/ML VIAL IVP SCH ×3 (01:04→12:21)
[2020-06-28 04:37] LABS: #Basophils 0.1 thou/uL (0.0-0.2); #Eosinphils 0.2 thou/uL (0.0-0.7); #Lymphocytes 2.7 thou/uL (1.20-3.40); #Monocytes 1.4 thou/uL (0.11-0.59); #Neutrophils 9.6 thou/uL (1.40-6.50); %Basophils 0.8 % (0.0-1.0); %Eosinophils 1.1 % (0.0-10.0); %Lymphocytes 19.2 % (21.0-51.0); %Monocytes 9.9 % (0.0-10.0); %Neutrophils 69.1 % (42.0-75.0); Hemoglobin 11.6 g/dL (14.0-18.0); Mean Corpuscular HGB CONC 33.9 g/dL (32.0-36.0); Mean Corpuscular Hemoglobin 31.6 pg (27.0-31.0); Mean Corpuscular Volume 93.3 fL (78.0-98.0); Mean Platelet Volume 8.4 fL (7.4-10.4); Platelet Count 178 thou/uL (130-400); RBC Distribution Width 12.1 % (11.5-14.5); Red Blood Cell (RBC) Count 3.68 mill/uL (4.70-6.10); White Blood Cell (WBC) Count 13.8 thou/uL (4.8-10.8)
[2020-06-28 04:58] LABS: Anion Gap 11 mmol/L (10-20); BUN (Urea Nitrogen) 17 mg/dL (8.9-20.6); Calc. Creatinine Clearance 145 mL/min (70-130); Calcium 8.4 mg/dL (7.8-10.44); Carbon Dioxide 27 mmol/L (22-29); Chloride 99 mmol/L (98-107); Estimated GFR-MDRD 66; Glucose 113 mg/dL (70-105); Sodium 133 mmol/L (136-145)
[2020-06-28] MEDS ORDERED: Lisinopril 2.5 MG TAB PO SCH (09:00)
[2020-06-28] MEDS: Metoprolol Tartrate 25 MG TAB PO SCH (09:22)
[2020-06-28] MEDS: Potassium Chloride 10 MEQ TAB PO SCH (09:23)
[2020-06-28] MEDS: Clopidogrel Bisulfate 75 MG TAB PO SCH (09:23)
[2020-06-28] MEDS: Aspirin 81 mg Enteric Coated Tablet PO SCH (09:23)
[2020-06-28] MEDS: Furosemide 40 MG TAB PO SCH (09:23)
[2020-06-28 15:15] VITALS: BP 129/67
[2020-06-28 16:13] VITALS: TEMP 98.6
--- NOTE | 2020-06-28 16:33 | DIS ---
DATE OF ADMISSION: 06/22/2020 DATE OF DISCHARGE: 06/28/2020 DISCHARGE DIAGNOSES: 1. Multivessel disease with status post coronary artery bypass grafting x4 on June 25. 2. Chest pain, resolved. 3. Hypertension. 4. Dyslipidemia. 5. Anxiety disorder. CONSULTATIONS: 1. Cardiology, Dr. Glover. 2. Cardiovascular Surgery Dr. Killian Bowden. PROCEDURES PERFORMED: 1. Left heart catheterization, showed multivessel disease. 2. CABG x4. HISTORY OF PRESENT ILLNESS: The patient is a pleasant 49-year-old gentleman, who has significant past medical history of CAD, hypertension, dyslipidemia, who presented to the ED with complaint of chest pain intermittently for the past week, associated with dyspnea. The patient had a couple of stents placed back in 2012. Given his symptomatology, the patient was subsequently admitted to Hospitalist Service for further evaluation. His troponins remained negative x3. Cardiology was consulted. The patient was seen by Cardiology, Dr. Glover, subsequently underwent left heart catheterization, showed multivessel disease. For that reason, Cardiovascular Surgery was consulted. The patient was seen by Dr. Bowden. Ultimately, recommended coronary bypass x4. The patient underwent his surgery on June 25 and the patient did quite well. No apparent complication. He tolerated the procedure well as well as his recovery. He subsequently moved out of ICU, had been working with Physical Therapy. At this time, the patient has been cleared to discharge from Cardiology standpoint as well as Cardiovascular. The patient had followup appointment to see his PCP as well as Cardiology and Cardiovascular for postop followup. DISCHARGE MEDICATIONS: 1. Aspirin 81 mg p.o. daily. 2. Lipitor 40 mg p.o. at bedtime. 3. Metoprolol 12.5 mg b.i.d. 4. Plavix 75 mg p.o. daily. 5. Tramadol 50 mg q.6 p.r.n. for pain. 6. Lisinopril 2.5 mg p.o. daily. PHYSICAL EXAMINATION: VITAL SIGNS: Temperature is 98.5, respiratory rate 16, pulse 78, saturating 94% on room air, and blood pressure 129/67. GENERAL APPEARANCE: The patient appears to be comfortable. He is not in acute distress. HEENT: Normocephalic and atraumatic. Mucous membranes are moist. NECK: Supple. No lymphadenopathy. No JVD. CARDIOVASCULAR: Regular rate and rhythm, S1 and S2 noted. No murmur. His surgical wound is healing well, no drainage. Packing intact as well as suture. No erythema or drainage noted. ABDOMEN: Soft, nontender, nondistended. Positive bowel sounds. MUSCULOSKELETAL: No joint pain or tenderness. No lower extremity edema. NEUROLOGIC: Cranial nerves 2 through 12 are grossly intact. No focal weakness. PSYCHIATRIC: The patient is alert and oriented x3 with normal affect. Thank you for allowing us to participate in this patient's care. Discharge time spent, 35 minutes. Job ID: [id number]
--- NOTE | 2020-06-29 03:01 | DIS ---
DATE OF ADMISSION: 06/22/2020 DATE OF DISCHARGE: 06/28/2020 DIAGNOSES: 1. Coronary artery disease. 2. Hypertension. 3. Dyslipidemia. 4. Obesity. PROCEDURES: 1. Cardiac catheterization. 2. Coronary artery bypass grafting x4 -. a. Left internal mammary artery to LAD. b. Left radial artery to diagonal. c. Saphenous vein graft to high diagonal and obtuse marginal. DESCRIPTION OF HOSPITAL STAY: Mr. Miller was brought in with chest pain, pressure, and shortness of breath. He had negative stress test, but due to his symptom complex, he underwent cardiac catheterization revealing severe three-vessel disease. He was taken to the operating room on 06/22 and underwent bypass as above. He went to the operating room on 06/25. He has done very well postoperatively. He is being discharged home today in good condition to follow up with me in 2 weeks, Dr. Glover in a month. DISCHARGE MEDICATIONS: Include: 1. Aspirin 81 mg daily. 2. Plavix 75 mg daily. 3. Lipitor 40 mg at bedtime. 4. Lopressor 12.5 mg b.i.d. 5. Lisinopril 1.25 mg daily. 6. Tramadol 50 mg 1 to 2 q.8 hours p.r.n. pain. Job ID: [id number]
--- NOTE | 2020-06-29 08:14 | PQF ---
CLINICAL DOCUMENTATION CLARIFICATION FORM: Dear : Killian Bodwen Date / Time: 06/29/20 08 Please exercise your independent, professional judgment in responding to the clarification form. Clinical indicators are provided on the bottom of this form for your review Please check appropriate box(es): [ ] Left Arm Hematoma is a postoperative complication of Circulatory following graft harvesting [ ] Left Arm Hematoma is a postoperative complication of Skin and Subcutaneous following graft harvesting [ ] Left Arm Hematoma is not a postoperative complication [ ] Other diagnosis [ x] Unable to determine Physician Signature: Date/Time: For continuity of documentation, please document condition throughout progress notes and discharge summary. Thank You. To be completed by CDI/Coding staff for physician review: Present Clinical Indicators - Signs / Symptoms / Labs Results and Location in Medical Record [X] BP 114/73, Pulse 74, Resp 19, Temp 98.3 Vital signs 06/26 [X] RBC 3.96, Hgb 12.5, Hct 36.8 Laboratory 06/26 [X] The left arm allens test was repeated with showed good ulnar artery flow Operative report 06/25 Dr Bowden [X] Started to have weeping from left radial harvest site Cardiology PN p1 06/27 Dr Glover [X] Left arm hematoma Cardiology PN p1 06/27 Dr Glover [X] Pain on surgical site Cardiology PN p1 06/27 Dr Glover Present Risk Factors Results and Location in Medical Record [X] CAD Operative report 06/25 Dr Bowden [X] Obesity Operative report 06/25 Dr Bowden [X] HTN Operative report 06/25 Dr Bowden [X] Vape Smoker Operative report 06/25 Dr Bowden [X] s/p CABG with Left radial artery harvest Operative report 06/25 Dr Bowden Present Treatments Results and Location in Medical Record [X] Ultram 100 mg oral MAR 06/26 [X] IV Heparin 100 units DEC 04 [X] Cardiology consult Consult Dr Bowden 05/22 [X] IVF DEC 04 CDS/[employer] Principal Signature: Makenzie Hough Phone #: [phone] Date/Time: 06/29/202013 This is a permanent part of the Medical Record [facility]
== END 2020-06-28 16:12 | disposition home or self-care (01) | DRG 234 ==
LOC: ERS 11:30 → 2SW 13:27 → OBSVTOIN 06-22 15:30 → 2NO 06-22 16:47 → CCU 06-25 11:52 → 2NO 06-26 15:54
PROVIDERS: ADMIT Internal Medicine; ATTEND Internal Medicine
PROC: 4A023N7 Measurement of Cardiac Sampling and Pressure, Left Heart, Percutaneous Approach (ICD-10-PCS; principal; 2020-06-22)
PROC: B2111ZZ Fluoroscopy of Multiple Coronary Arteries using Low Osmolar Contrast (ICD-10-PCS; 2020-06-22)
PROC: B2151ZZ Fluoroscopy of Left Heart using Low Osmolar Contrast (ICD-10-PCS; 2020-06-22)
PROC: 021109W Bypass Coronary Artery, Two Arteries from Aorta with Autologous Venous Tissue, Open Approach (ICD-10-PCS; 2020-06-25)
PROC: 03BC0ZZ Excision of Left Radial Artery, Open Approach (ICD-10-PCS; 2020-06-25)
PROC: 02100Z9 Bypass Coronary Artery, One Artery from Left Internal Mammary, Open Approach (ICD-10-PCS; 2020-06-25)
PROC: 06BQ4ZZ Excision of Left Saphenous Vein, Percutaneous Endoscopic Approach (ICD-10-PCS; 2020-06-25)
PROC: 02100AW Bypass Coronary Artery, One Artery from Aorta with Autologous Arterial Tissue, Open Approach (ICD-10-PCS; 2020-06-25)
PROC: 5A1221Z Performance of Cardiac Output, Continuous (ICD-10-PCS; 2020-06-25)
DX: I25.119 Atherosclerotic heart disease of native coronary artery with unspecified angina pectoris (principal); E78.5 Hyperlipidemia, unspecified; F41.9 Anxiety disorder, unspecified; I10 Essential (primary) hypertension; Z20.828 Contact with and (suspected) exposure to other viral communicable diseases; F12.10 Cannabis abuse, uncomplicated; F17.290 Nicotine dependence, other tobacco product, uncomplicated; E66.9 Obesity, unspecified; Z68.39 Body mass index [BMI] 39.0-39.9, adult; Z95.5 Presence of coronary angioplasty implant and graft; Z78.1 Physical restraint status; Z91.041 Radiographic dye allergy status; S40.022A Contusion of left upper arm, initial encounter; X58.XXXA Exposure to other specified factors, initial encounter
CPT/HCPCS: 36415; 36416; 36430; 71045; 80048; 80053; 80061; 83036; 83690; 83880; 84484; 85025; 85610; 85730; 86850; 86900; 86901; 87635; 93005; 93010; 93458; 93798; 94760; 96372; 96374; 97139; 99152; G0378; J0171; J0690; J1100; J1200; J1642; J1644; J1650; J1815; J1885; J2001; J2250; J2405; J2440; J2720; J3010; J3370; J3475; J3480; J7512; P9045; Q9967; S0017; S0020; S0028; U0003

== ENCOUNTER 2020-08-06 06:02 | Emergency (ER) | payer OTHER ==
[2020-08-06] MEDS ORDERED: Ketorolac Tromethamine 30 MG/ML VIAL ONE ×2 (06:24→07:50)
[2020-08-06 06:43] LABS: #Basophils 0.1 thou/uL (0.0-0.2); #Eosinphils 0.4 thou/uL (0.0-0.7); #Lymphocytes 2.5 thou/uL (1.20-3.40); #Monocytes 0.7 thou/uL (0.11-0.59); #Neutrophils 7.1 thou/uL (1.40-6.50); %Basophils 1.4 % (0.0-1.0); %Eosinophils 3.3 % (0.0-10.0); %Lymphocytes 23.2 % (21.0-51.0); %Monocytes 6.1 % (0.0-10.0); Hemoglobin 15.3 g/dL (14.0-18.0); Mean Corpuscular HGB CONC 33.8 g/dL (32.0-36.0); Mean Corpuscular Hemoglobin 30.5 pg (27.0-31.0); Mean Platelet Volume 7.5 fL (7.4-10.4); Platelet Count 340 thou/uL (130-400); RBC Distribution Width 12.3 % (11.5-14.5); Red Blood Cell (RBC) Count 5.02 mill/uL (4.70-6.10); White Blood Cell (WBC) Count 10.7 thou/uL (4.8-10.8)
[2020-08-06 07:02] LABS: ALT (SGPT) 22 U/L (8-55); AST (SGOT) 15 U/L (5-34); Albumin 3.9 g/dL (3.5-5.0); Alkaline Phosphatase 143 U/L (40-110); Anion Gap 13 mmol/L (10-20); BUN (Urea Nitrogen) 12 mg/dL (8.9-20.6); Bilirubin, Total 0.3 mg/dL (0.2-1.2); Calc. Creatinine Clearance 0 mL/min (70-130); Calcium 9.3 mg/dL (7.8-10.44); Carbon Dioxide 24 mmol/L (22-29); Chloride 104 mmol/L (98-107); Estimated GFR-MDRD 54; Globulin 4.1 g/dL (2.4-3.5); Glucose 124 mg/dL (70-105); Potassium 3.9 mmol/L (3.5-5.1); Sodium 137 mmol/L (136-145)
[2020-08-06 07:09] LABS: Bilirubin Unable to Interpret (Negative); Blood, Urine Unable to Interpret (Negative); Clarity Turbid (Clear); Glucose, Urine (Dipstick) Unable to Interpret mg/dL (Negative); Ketone, Urine Unable to Interpret mg/dL (Negative); Leukocyte Unable to Interpret Leu/uL (Negative); Nitrite Unable to Interpret (Negative); Protein, Urine (Dipstick) Unable to Interpret mg/dL (Neg-Trace); Urobilinogen UNABLE TO INTERPRET mg/dL (Less than 2)
[2020-08-06 07:12] LABS: Specific Gravity, Urine 1.028 (1.002-1.036); pH, Urine 5.5 (5.0-9.0)
[2020-08-06 07:13] LABS: Bacteria/HPF None Seen HPF (None Seen); RBC/HPF Greater than 50 HPF (0-3); Squamous Epithelial 0-3 HPF (0-3)
[2020-08-06 07:14] LABS: Calcium Oxalate Crystals 1+ HPF (None Seen)
[2020-08-06] MEDS ORDERED: Ondansetron PF 4 MG/2 ML Vial ONE ×2 (07:50→08:09)
[2020-08-06] MEDS ORDERED: Fentanyl 100 MCG/2 ML VIAL ONE (07:50)
--- NOTE | 2020-08-06 07:51 | CT ---
PRELIMINARY REPORT/[facility]/EMERGENCY AFTER HOURS PROCEDURE: EXAM: CT Abdomen and Pelvis Without Intravenous Contrast CLINICAL HISTORY: PT REPORTS L FLANK PAIN ONSET 0100. PT ALSO REPORTS NAUSEA, AND STATES HE HAS A HISTORY OF KIDNEY STO GERTRUDIS TECHNIQUE: Axial computed tomography images of the abdomen and pelvis without intravenous contrast. CONTRAST: None. COMPARISON: None provided. FINDINGS: LUNG BASES: Small left pleural effusion with adjacent consolidation at the left lung base. LIVER: Unremarkable. GALLBLADDER AND BILE DUCTS: Unremarkable. No calcified stone. No ductal dilation. PANCREAS: Unremarkable. SPLEEN: Unremarkable. ADRENAL GLANDS: Unremarkable. KIDNEYS, URETERS, AND BLADDER: 2 mm stone at the left ureteropelvic junction causing mild left hydronephrosis and left perinephric f at stranding. 7 mm nonobstructing stone in the lower pole of the left kidney and 4 mm nonobstructing stone in the r ight kidney. The urinary bladder is decompressed, limiting evaluation. STOMACH AND BOWEL: The colon is decompressed, limiting evaluation. No bowel obstruction. APPENDIX: Normal appendix. PERITONEUM: No free fluid. No free air. LYMPH NODES: No lymphadenopathy. REPRODUCTIVE: Unremarkable as visualized. VASCULATURE: Scattered atherosclerotic calcifications of the aorta. ABDOMINAL WALL AND SOFT TISSUES: Small bilateral fat-containing inguinal hernias. BONES: Degenerative changes of the spine most prominent at L5/S1 IMPRESSION: 2 mm stone at the left ureteropelvic junction causing mild left hydronephrosis and left perinephric f at stranding. 7 mm nonobstructing stone in the lower pole of the left kidney and 4 mm nonobstructing stone in the r ight kidney. Small left pleural effusion with adjacent consolidation at the left lung base which may represent ate lectasis, however pneumonia is not excluded. ELECTRONICALLY SIGNED BY: Jewels Cantor MD Aug 06, 2020 7:05:17 AM [employer]AF [employer] This report is intended for review by the ordering physician only, in accordance of law. If you recei ve this report in error, please call [facility] at [phone]. FINAL REPORT EMERGENCY AFTER HOURS CT ABDOMEN AND PELVIS PERFORMED WITHOUT CONTRAST ENHANCEMENT: Date: 08/06/2020 HISTORY: Left flank pain. History of kidney stones. COMPARISON: 08/10/2019 study. FINDINGS: Mild left-sided pleural effusion and left lower lobe atelectasis have developed. The liver shows sugg estion of fatty changes. The spleen, pancreas, and gallbladder regions appear unremarkable given the limitations of a noncontrast study. There is a 2-3 mm nonobstructing lower pole right renal calculus and about a 5-6 mm lower pole left r enal calculus, and left-sided hydronephrosis related to a punctate left ureteropelvic junction calcul us. The ureter below this level is nondilated. There is no significant periaortic or mesenteric adeno alexis. CT of pelvis was performed without contrast enhancement. No adenopathy, mass, or free fluid. IMPRESSION: 1. Fatty changes of the liver. 2. Mild left-sided pleural effusion with left lower lobe atelectasis. 3. Bilateral renal calculi and left-sided hydronephrosis related to a 2.0 mm left ureteropelvic junc tion calculus. Report in agreement with the preliminary report issued by [facility]. POS: OFF
[2020-08-06] MEDS ORDERED: Magnesium 2 GM/50 ML BAG (IN WATER) ONE (09:19)
== END 2020-08-06 08:42 | disposition home or self-care (01) ==
LOC: ERS 06:02
DX: N13.2 Hydronephrosis with renal and ureteral calculous obstruction (principal); I25.10 Atherosclerotic heart disease of native coronary artery without angina pectoris; E78.5 Hyperlipidemia, unspecified
CPT/HCPCS: 74176; 80053; 81003; 81015; 83690; 85025; 96374; 96375; 96376; J1885; J2405; J3010; J3475